=== PATIENT | female | born 1935 | race Caucasian/White ===

== ENCOUNTER 2018-06-07 06:38 | Inpatient (IN) | payer OTHER ==
[2018-06-07] VITALS (36 sets, daily range): BP systolic 88–160; BP diastolic 37–71
[~2018-06-07] VITALS: Ht 157.5 cm; Wt 71.5 kg
[2018-06-07] MEDS ORDERED: SUCCINYLCHOLINE CHLORIDE 20 MG/ML 10ML VIAL IV ONE ×2 (06:41→07:00)
[2018-06-07] MEDS ORDERED: ETOMIDATE (2MG/ML) 20ML VIAL IV ONE ×2 (06:41→07:00)
[2018-06-07] MEDS ORDERED: MIDAZOLAM DRIP 50 mg/50mL 50 ML IV ONE (06:57)
[2018-06-07] MEDS ORDERED: ALBUTEROL SULF 2.5 MG/0.5ML(0.5%) NEB SOLN HHN ONE (07:00)
[2018-06-07] MEDS ORDERED: IPRATROPIUM BROM 0.5 MG/2.5ML INH SOL HHN ONE (07:00)
[2018-06-07] MEDS ORDERED: methylPREDNISolone SOD SUCC 125 MG/2 ML VL IV ONE (07:00)
[2018-06-07 07:06] LABS: Basophils # (auto) 0.1 uL; Basophils % (auto) 0.6 % (0.0-2.0); Eosinophils # (auto) 0.1 uL; Eosinophils % (auto) 1.1 % (0.0-7.0); Hematocrit 36.5 % (36.0-46.0); Hemoglobin 11.3 g/dL (12.2-16.2); Lymphocytes # (auto) 4.8 uL; Lymphocytes % (auto) 47.8 % (10.0-50.0); Mean Corpuscular Hemoglobin 30.7 pg (28.0-32.0); Mean Corpuscular Volume 99.2 fL (80.0-100.0); Monocytes # (auto) 0.6 uL; Monocytes % (auto) 6.1 % (0.0-12.0); Neutrophils # (auto) 4.4 uL; Neutrophils % (auto) 44.4 % (37.0-80.0); Nucleated Red Blood Cells % 0.2 %; Platelet Count (auto) 213 10^3/uL (140-450); Red Blood Cells 3.67 10^6/uL (4.0-5.20); Red Cell Distribution Width 16.2 % (11.8-14.3)
[2018-06-07 07:24] LABS: Albumin 3.5 g/dL (3.4-5.0); Calcium 8.9 mg/dL (8.5-10.1); Magnesium 2.2 mg/dL (1.6-2.6); Potassium 4.4 mmol/L (3.5-5.1)
[2018-06-07 07:30] LABS: BUN/Creatinine Ratio 21.1; Bilirubin, Total 0.5 mg/dL (0.2-1.0)
[2018-06-07] MEDS: NOREPINEPHRINE 8 MG/250ML KIT 250 ML IV SCH ×3 (08:28→14:36)
[2018-06-07] MEDS ORDERED: PROPOFOL 100 ML IV ONE (08:28)
[2018-06-07 08:31] LABS: Urine Bacteria MOD /hpf (None Seen); Urine Blood 2+ /uL (Negative); Urine Mucus FEW (None Seen); Urine Specific Gravity 1.016 (1.001-1.035); Urine WBC 154 /hpf (0 - 5); Urine WBC Clumps PRESENT /hpf (None Seen)
[2018-06-07] MEDS: PROPOFOL 100 ML IV SCH (08:41)
[2018-06-07] MEDS: MIDAZOLAM DRIP 50 mg/50mL 50 ML IV SCH ×5 (08:41→21:28)
[2018-06-07 08:55] LABS: Lactic Acid w/Reflex 5.4 mmol/L (0.4-2.0)
[2018-06-07 09:09] LABS: INR 1.03 (0.9-1.15)
[2018-06-07] MEDS ORDERED: FUROSEMIDE 40 MG/4 ML VIAL IV ONE (11:00)
[2018-06-07] MEDS ORDERED: cefTRIAXone 1GM/50ML D5W 50 ML IV ONE (11:00)
[2018-06-07] MEDS ORDERED: LEVOFLOXACIN 750MG 150 ML IV SCH (11:15)
[2018-06-07] MEDS ORDERED: DEXTROSE (50%) 50ML SYRG IV PRN (11:15)
[2018-06-07] MEDS ORDERED: VANCOMYCIN PER PHARMACY 0 MG IV SCH (11:15)
[2018-06-07] MEDS ORDERED: HYDROcodone-ACET 5/325MG TAB PO PRN (11:15)
[2018-06-07] MEDS ORDERED: NITROGLYCERIN 0.4 MG SL TAB SL PRN (11:15)
[2018-06-07] MEDS ORDERED: SODIUM BICARBONATE 8.4 % INJ 50ML VIAL IV ONE (11:15)
[2018-06-07] MEDS ORDERED: ONDANSETRON HCL 4 MG/2 ML VIAL IV PRN (11:15)
[2018-06-07] MEDS ORDERED: MORPHINE SULFATE 4 MG/ML SYR/VIAL IV PRN (11:15)
[2018-06-07] MEDS ORDERED: MORPHINE SULF INJ 2 MG/ML SYRINGE 1ML IV PRN (11:15)
[2018-06-07] MEDS ORDERED: FUROSEMIDE 20 MG/2 ML VIAL IV ONE (11:15)
[2018-06-07] MEDS ORDERED: VANCOMYCIN 1GM/250ML 250 ML IV ONE (11:30)
[2018-06-07] MEDS: ACCU-CHEK COMFORT CURVE STRIP VI SCH ×2 (11:54→17:33)
[2018-06-07] MEDS: InsuLIN REG 1unit/0.01ml Soln (100units/ml) SC SCH ×2 (11:54→17:37)
[2018-06-07] MEDS: PANTOPRAZOLE 40 MG/10 ML VIAL IV SCH (11:57)
[2018-06-07] MEDS: IPRATROPIUM BROM 0.5 MG/2.5ML INH SOL NEB SCH ×2 (12:58→19:13)
[2018-06-07] MEDS: ALBUTEROL SULF 2.5 MG/0.5ML(0.5%) NEB SOLN NEB SCH ×2 (12:58→19:13)
--- NOTE | 2018-06-07 13:57 | NUR ---
PICC line placement Patient/Patient significant other educated on need for PICC line placement. All risks and benefits explained and all questions and concerns addressed prior to procedure. Noted past medical history and allergies with no contraindications. INR and Plt counts within acceptable range. 5 fr PICC line inserted via left basilic vein using [employer] US and Tip Location System. Sterile technique with maximum barrier precautions utilized. Blood return obtained from each of 3 lumens and each flushed easily with NS using proper technique. PICC secured with Stat-lock; biodisc and occlusive dressing applied. Stat portable chest x-ray obtained for PICC tip placement. *Baseline Arm Circumference 35cm. Internal length 37cm. External length 0cm. PICC lot # [id number] Note: Placed easily x1 attempt
[2018-06-07] MEDS ORDERED: LIDOCAINE 1% (LOCAL ANESTH.) PF 5ml SDV ID ONE (14:00)
--- NOTE | 2018-06-07 14:04 | NUR ---
OK to use PICC line Xray completed. OK to use PICC line.
--- NOTE | 2018-06-07 15:40 | NUR ---
Respiratory note: PT TRANSPORTED FROM ER TO ICU WITHOUT INCIDENT. PT WAS VENTILATED VIA AMBU-BAG AND ATTACHED TO NEON SIGN ERECTOR AND CONTINUOUS POX DURING THE TRANSPORT.
--- NOTE | 2018-06-07 15:40 | NUR ---
Admit to ICU from ER on vent CANDY MAHER,VADIM Badmitted to ICU via gurney on personnel monitor, intubated and being bagged by Respiratory Therapist. Patient transfered to bed, connected to mechanical ventilator by therapist, DIANNE at bedside. Patient connected to ICU monitoring, weighed by bedscale, oriented to Oren cee RN, unit, ventilator and sedation.
--- NOTE | 2018-06-07 16:27 | NUR ---
PEEP HAS BEEN INCREASED TO [address] TORREZ. NEW VENT SETTINGS: RR 16, VT 500, PEEP 7, 90% FIO2.
[2018-06-07] MEDS: FUROSEMIDE 20 MG/2 ML VIAL IV SCH (17:33)
--- NOTE | 2018-06-07 18:28 | NUR ---
PICC LINE INSERTED TODAY, DSG PLACED BY JONO RN Addendum: 06/07/18 at 1828 by Oren Marroquin RN Amended: Links added.
--- NOTE | 2018-06-07 18:30 | NUR ---
LEVOPHED OFF AT THIS TIME
[2018-06-07] MEDS ORDERED: SITA50TA PO (19:35)
[2018-06-07] MEDS ORDERED: GLIP-116 PO (19:35)
[2018-06-07] MEDS ORDERED: ENAL2.5T PO (19:35)
[2018-06-07] MEDS ORDERED: ALLO300T2 PO (19:35)
[2018-06-07] MEDS ORDERED: FURO20TA PO (19:35)
[2018-06-07] MEDS ORDERED: HYDR-4683 PO (19:35)
[2018-06-07] MEDS ORDERED: ATEN50TA PO (19:35)
[2018-06-07] MEDS ORDERED: PIO30T PO (19:35)
[2018-06-07] MEDS ORDERED: NITR0.4S29 SL (19:35)
[2018-06-07] MEDS ORDERED: METF-371 PO (19:35)
[2018-06-07] MEDS ORDERED: CLOP75TA28 PO (19:35)
[2018-06-07] MEDS ORDERED: FELO10TA PO (19:35)
[2018-06-07] MEDS ORDERED: ATOR40TA52 PO (19:35)
--- NOTE | 2018-06-07 19:41 | NUR ---
PT ADMITTED TODAY WITH SEPSIS, UTI, RESPIRATORY FAILURE, CHF. INTUBATED. ETT TO VENTILATOR. LEFT NARE NGT WITH DARK GREEN LIQUID IN TUBING. ABDOMEN SOFT. PAPER THIN SKIN. MULTIPLE DISPERSED HEMMORAGHIC AREAS ON ARMS. SKIN TEAR RIGHT FOREARM COVERED WITH KERLIX. 2 PERIPHERAL IVS. LEFT UPPER ARM PICC LINE. ON DIPRIVAN AND VERSED. LEVOPHED TURNED OFF ONE HOUR AGO. LABS: LACTIC ACID ELEVATED. BNP ELEVATED. D DIMER ELEVATED. BICARB IN ABG IS LOW. PENDING ECHO RESULTS. PATIENT IS WELL SEDATED. PROPOFOL TUBING CHANGED. TEMP 99.2. 3+ PITTING EDEMA IN BOTH LEGS. BP CUFF ON RIGHT LOWER LEG. SCD ON LEFT LOWER LEG.
[2018-06-07] MEDS: SODIUM CHLOR 0.9% PF (SALINE LOCK) 10ML VIAL/SYR IV SCH (22:00)
--- NOTE | 2018-06-07 22:00 | NUR ---
VSS. TEMP 97.9. NSR WITHOUT ECTOPY. NO SECRETIONS FROM ETT OR ORALLY. LUNGS CLEAR. REPOSITIONED. MOVES UPPER EXTREMITIES TO PAIN. DOES NOT MOVE LOWER EXTREMITIES TO PAIN. PICC LINE DRESSING SHOWS NO REDNESS OR SWELLING. RAC DRESSING HAS LEAKED BLOOD AT THE SITE. RIGHT FOREARM IV SHOWS NO REDNESS , DRAINAGE OR SWELLING.
[2018-06-08] VITALS (91 sets, daily range): BP systolic 114–169; BP diastolic 45–79
--- NOTE | 2018-06-08 | NUR ---
REPOSITIONED. NOTHING SUCTIONED FROM HER ETT OR ORAL CAVITY. LUNGS CLEAR. TEMP 97.6. SHEET AND BLANKET APPLIED. ABDOMEN SOFT. ALL PULSES ARE PALPABLE. SCDS ON. CONTINUE ON DIPRIVAN AND VERSED. MOVES ARMS AND LEGS NOW. CENTRAL LINE SHOWS NO REDNESS OR SWELLING.
[2018-06-08] MEDS: IPRATROPIUM BROM 0.5 MG/2.5ML INH SOL NEB SCH ×4 (00:06→18:42)
[2018-06-08] MEDS: ALBUTEROL SULF 2.5 MG/0.5ML(0.5%) NEB SOLN NEB SCH ×4 (00:06→18:42)
[2018-06-08] MEDS: InsuLIN REG 1unit/0.01ml Soln (100units/ml) SC SCH ×4 (00:19→17:52)
[2018-06-08] MEDS: ACCU-CHEK COMFORT CURVE STRIP VI SCH ×4 (00:19→17:52)
[2018-06-08] MEDS: PROPOFOL 100 ML IV SCH (02:00)
--- NOTE | 2018-06-08 02:00 | NUR ---
VSS. REPOSITIONED. ORAL CARE. LUNGS CLEAR. NO SECRETIONS SUCTIONED FROM HER LUNGS TONIGHT. NSR WITHOUT ECTOPY.
--- NOTE | 2018-06-08 03:00 | NUR ---
AM LABS DRAWN
[2018-06-08 03:43] LABS: Basophils # (auto) 0 uL; Basophils % (auto) 0.2 % (0.0-2.0); Eosinophils # (auto) 0 uL; Hematocrit 28.6 % (36.0-46.0); Hemoglobin 9.5 g/dL (12.2-16.2); Lymphocytes # (auto) 0.8 uL; Lymphocytes % (auto) 8.8 % (10.0-50.0); Mean Corpuscular Hgb Conc. 33.2 g/dL (32.0-36.0); Mean Corpuscular Volume 93.4 fL (80.0-100.0); Monocytes # (auto) 1.1 uL; Monocytes % (auto) 12.7 % (0.0-12.0); Neutrophils # (auto) 6.7 uL; Neutrophils % (auto) 78.3 % (37.0-80.0); Nucleated Red Blood Cells % 0.1 %; Platelet Count (auto) 135 10^3/uL (140-450); Red Blood Cells 3.07 10^6/uL (4.0-5.20); Red Cell Distribution Width 15.3 % (11.8-14.3); White Blood Cell 8.6 10^3/uL (4.4-10.8)
[2018-06-08 04:04] LABS: Calcium 8.6 mg/dL (8.5-10.1); Potassium 3.5 mmol/L (3.5-5.1)
[2018-06-08] MEDS: FUROSEMIDE 20 MG/2 ML VIAL IV SCH ×2 (05:40→17:52)
[2018-06-08] MEDS: MIDAZOLAM DRIP 50 mg/50mL 50 ML IV SCH ×3 (05:40→13:30)
--- NOTE | 2018-06-08 06:30 | NUR ---
Respiratory note: ORAL SKIN INTEGRITY CHECKED ON FIRST ROUNDS. PT HAS NO BREAKDOWN, WOUNDS, OR REDNESS AROUND MOUTH OR LIPS.
--- NOTE | 2018-06-08 07:41 | NUR ---
OPEN. REPORT RECEIVED FROM PHOTOENGRAVER APPRENTICE RN CL, ASSUMED CARE OF PT. VITAL SIGNS STABLE AT THIS TIME, SEE INTERVENTIONS FOR INITIAL ASSESSMENT. WILL CONTINUE TO MONITOR PT.
[2018-06-08] MEDS: SODIUM CHLOR 0.9% PF (SALINE LOCK) 10ML VIAL/SYR IV SCH ×2 (09:48→22:05)
[2018-06-08] MEDS: PANTOPRAZOLE 40 MG/10 ML VIAL IV SCH (09:48)
[2018-06-08] MEDS ORDERED: LEVOFLOXACIN 750MG 150 ML IV SCH (10:00)
--- NOTE | 2018-06-08 11:44 | NUR ---
Nutrition Assessment/consult Notes please see attached link for complete assessment Est. Needs ABW [id number] kcal (23-25 kcal/kgBW), 50-63 gms pro (0.8-1.0 gms/kgBW r/t elev RFT). Will continue to monitor pertinent labs and reassess nutrient need prn Rec: EN support with Glucerna @ 50 ml/hr per MD approval Addendum: 06/08/18 at [address] Amended: Links added.
--- NOTE | 2018-06-08 12:13 | NUR ---
DR CHAUDHRY AT BEDSIDE, NEW ORDERS IN PLACE AT THIS TIME.
--- NOTE | 2018-06-08 12:30 | NUR ---
WOUND CARE NOTE: Wound care consult received for skin tear. Patient is a 82 yo female admitted for sepsis. Patient with a history of hypertension and diabetes. No further history can be obtained per records due to intubation. Patient with no signs/symptoms of pain. Last Luan score is 16. Patient noted to have a skin tear to left lower arm measuring 3x4.5cm with skin flap in place, category 2. Wound cleansed with NS, patted dry, remaining skin flap positioned back over wound using a cotton tip applicator, therahoney gel applied to open areas and cover with optifoam dressing. RECOMMENDATIONS: Turn q2hrs; Dietary consult; Nursing to cleanse skin tear with NS, pat dry, apply therahoney gel to open area, cover with foam dressing, change every other day/PRN; wound care team to follow. Addendum: 06/08/18 at 1716 by TALITA UBRAN RN Amended: Links added.
--- NOTE | 2018-06-08 12:55 | NUR ---
CARDIAC CONSULT DR CARVAJAL UPDATED ON PT STATUS, DR MESA ROUND LATER TODAY.
--- NOTE | 2018-06-08 19:45 | NUR ---
INITIAL CONTACT ASSUMED CARE OF PATIENT PATIENT RECEIVED ON BED INTUBATED AND SEDATED ON VERSED AND PROPOFOL, SEE IV SPREAD SHEETS FOR TITRATIONS. PATIENT GRIMACES WHEN ORAL CARE IS GIVEN. PATIENT DOES NOT OPEN EYES AT THIS TIME. VITAL SIGNS WITHIN NORMAL LIMITS. NO S/S OF DISTRESS NOTED. PATIENT DOES NOT APPEAR TO BE IN PAIN AT THIS TIME. NOTED F/C IN PLACE AND DRAINING TO GRAVITY. ORAL CARE AND SUCTION PROVIDED. PATIENT READJUSTED IN BED. HOB AT 45 DEGREES FOR ASPIRATION PRECAUTIONS, VENTILATOR PLUGGED INTO RED OUTLET, AMBU BAG AT BEDSIDE. BED IN LOWEST LOCKED POSITION, SIDE RAILS UP X 2. PATIENT IN FULL VIEW OF NURSES STATION, SAFETY MAINTAINED, WILL CONTINUE TO MONITOR.
[2018-06-09] VITALS (94 sets, daily range): BP systolic 91–169; BP diastolic 33–98
[2018-06-09] MEDS: ALBUTEROL SULF 2.5 MG/0.5ML(0.5%) NEB SOLN NEB SCH ×4 (00:07→18:48)
[2018-06-09] MEDS: IPRATROPIUM BROM 0.5 MG/2.5ML INH SOL NEB SCH ×4 (00:07→18:48)
[2018-06-09] MEDS: VANCOMYCIN 1GM/250ML 250 ML IV SCH (00:16)
[2018-06-09] MEDS: PROPOFOL 100 ML IV SCH (00:16)
[2018-06-09] MEDS: ACCU-CHEK COMFORT CURVE STRIP VI SCH ×4 (00:34→17:57)
[2018-06-09] MEDS: InsuLIN REG 1unit/0.01ml Soln (100units/ml) SC SCH ×4 (00:35→17:57)
[2018-06-09] MEDS: MIDAZOLAM DRIP 50 mg/50mL 50 ML IV SCH ×2 (00:36→04:28)
[2018-06-09 05:09] LABS: Basophils # (auto) 0 uL; Basophils % (auto) 0.4 % (0.0-2.0); Eosinophils # (auto) 0 uL; Eosinophils % (auto) 0.3 % (0.0-7.0); Hematocrit 31.5 % (36.0-46.0); Lymphocytes # (auto) 0.9 uL; Mean Corpuscular Hemoglobin 32.5 pg (28.0-32.0); Mean Corpuscular Hgb Conc. 34.8 g/dL (32.0-36.0); Mean Corpuscular Volume 93.3 fL (80.0-100.0); Monocytes # (auto) 0.9 uL; Monocytes % (auto) 10.3 % (0.0-12.0); Neutrophils # (auto) 6.9 uL; Platelet Count (auto) 134 10^3/uL (140-450); Red Blood Cells 3.38 10^6/uL (4.0-5.20); Red Cell Distribution Width 15.3 % (11.8-14.3); White Blood Cell 8.7 10^3/uL (4.4-10.8)
[2018-06-09] MEDS: FUROSEMIDE 20 MG/2 ML VIAL IV SCH ×2 (05:15→18:02)
[2018-06-09 05:27] LABS: Albumin 2.8 g/dL (3.4-5.0); Calcium 8.6 mg/dL (8.5-10.1); Potassium 3.6 mmol/L (3.5-5.1)
[2018-06-09 05:32] LABS: BUN/Creatinine Ratio 22.4; Bilirubin, Total 0.4 mg/dL (0.2-1.0)
--- NOTE | 2018-06-09 07:30 | NUR ---
BRADYCARDIA BRADYCARDIA NOTED LOW AT 46 DURING CHANGE OF SHIFT. UPDATED BY NOC NURSE, NO REPORTS OF BRADYCARDIA BY NOC RN. IN ROOM AND PT TOLERATING VENTILATOR HAVING FREQUENT EPISODES OF BRADYCARDIA IN THE 40'S. SEDATION STOPPED, PT STIMULATED. INTERVENTIONS UNSUCCESSFUL, BP REMAINED STABLE. 0830 PATIENT NOTED HR 160'S. EKG TAKEN AND SHOWN TO DR. CARVAJAL IN TECHNICAL SALES DIRECTOR. NEW ORDERS IN PLACE FOR PO INTERVENTIONS FOR AFIB RVR. PO AMIO GIVEN VIA NG. HR REMAINED 160'S. DR. CARVAJAL REPAGED. MD AT BEDSIDE. NEW ORDER FOR IV METOPROLOL. IV MEDICATIONS GIVEN. 919 DR. CHAUDHRY UPDATED ON PATIENTS STATUS AND MORNING OCCURRENCE. NEW ORDERS IN PLACE. 929 AT BEDSIDE UPDATED ON PATIENTS STATUS. COPY ADVANCE DIRECTIVE SET IN CHART. PER PT TO REMAIN FULL CODE AND EVERYTHING TO BE DONE, ONLY IF THERE IS NO HOPE. PT TO REMAIN FULL CODE.
[2018-06-09] MEDS: NOREPINEPHRINE 8 MG/250ML KIT 250 ML IV SCH (08:15)
[2018-06-09] MEDS ORDERED: AMIODARONE HCL 200 MG TAB ONE (08:43)
[2018-06-09] MEDS ORDERED: METOPROLOL TARTRATE 1MG/1ML-5ML VIAL IV ONE (08:59)
[2018-06-09] MEDS ORDERED: METOPROLOL TARTRATE 50 MG TAB PO ONE (09:00)
[2018-06-09] MEDS: METOPROLOL TARTRATE 1MG/1ML-5ML VIAL IV SCH ×3 (09:00→15:27)
[2018-06-09] MEDS ORDERED: AMIODARONE HCL 200 MG TAB PO ONE (09:00)
--- NOTE | 2018-06-09 09:00 | NUR ---
ALL SEDATION OFF DUE TO BRADYCARDIA Addendum: 06/09/18 at 1327 by Aury Causey RN Amended: Links added.
[2018-06-09] MEDS ORDERED: ACETYLCYSTEINE ORAL for CIN 20%(200MG/ML) 4ML PO ONE (09:15)
[2018-06-09] MEDS ORDERED: POTASSIUM EFFERVESENT TAB 25 MEQ GT ONE (09:15)
[2018-06-09] MEDS: PANTOPRAZOLE 40 MG/10 ML VIAL IV SCH (09:39)
[2018-06-09] MEDS: SODIUM CHLOR 0.9% PF (SALINE LOCK) 10ML VIAL/SYR IV SCH ×2 (09:39→22:24)
[2018-06-09] MEDS ORDERED: DIGOXIN (250MCG/ML) 2 ML AMPULE IV ONE (11:15)
[2018-06-09] MEDS: MAGNESIUM SULFATE 1GM/100ML 100 ML IV SCH ×2 (13:44→15:05)
[2018-06-09] MEDS ORDERED: IOHEXOL 350 MG/ML 100ML IJ ONE (14:36)
--- NOTE | 2018-06-09 15:14 | NUR ---
LBD TEACHER PREOP AT BEDSIDE REPORT GIVEN AT BEDSIDE AND UPDATED ON PATIENTS STATUS. NURSES AWARE OF HR THROUGHOUT THE DAY, CURRENT HR 120'S. PT TAKEN TO LBD TEACHER VIA BED WITH R.T AT BEDSIDE.
--- NOTE | 2018-06-09 15:20 | NUR ---
PT TRANSPORTED TO COMPUTER SYSTEM VALIDATION SPECIALIST WITH NO INCIDENCE REPORTED. PT WAS MANUALLY VENTILATED WITH NO DISTRESS NOTED. SPO2 OF 96%-98%. PT CONNECTED TO COMPUTER SYSTEM VALIDATION SPECIALIST VENTILATOR AND PLACED ON AC, 16, 500, 7, 100%. NO DISTRESS NOTED. PT TRANSPORTED BACK TO ICU WITH NO INCIDENCE REPORTED AND PLACED PT BACK ON VENT SETTINGS MENTIONED ABOVE. WILL CONTINUE TO MONITOR PT.
[2018-06-09] MEDS ORDERED: IODIXANOL 320MG/ML 100ML BTL IV ONE (15:28)
[2018-06-09] MEDS ORDERED: LIDOCAINE 2%HCL (LOCAL ANESTH.) INJ 20ML MDV ONE (15:28)
[2018-06-09] MEDS ORDERED: ANGIOMAX 250 MG VIAL IV ONE (15:29)
[2018-06-09] MEDS ORDERED: SODIUM CHL 0.9% 0 ML ONE (15:29)
[2018-06-09] MEDS ORDERED: SODIUM CHLORIDE 0.9% 1,000 ML IV SCH ×2 (16:27→17:30)
--- NOTE | 2018-06-09 16:30 | NUR ---
S/P [facility] Report received from laboratory chief Rn . CANDY MAHER brought back to bed 112 following Left Cardiac catheterization, on cardiac technician and back on previous vent orders. Catheterization site assessed for any bleeding, redness or swelling. Pedal pulses on affected leg assessed for positive tissue perfusion. Patient remains sedated, tolerating ventilator well. Per seed laboratory technician rn, patient converted to sinus rhythm during the procedure. Strip in chart. Patients bp 140/59 hr sr 88, rr 20, pox noted as low as 85%. Patient given 100%. Back back up to 98% then back to 90%. Patien to remains flat until 1830.
--- NOTE | 2018-06-09 16:58 | NUR ---
Cooling Measures applied. Patient currently has temp of 99.2 , cooling measures in place.
[2018-06-09] MEDS ORDERED: DIGOXIN (250MCG/ML) 2 ML AMPULE IV SCH (17:30)
--- NOTE | 2018-06-09 17:45 | NUR ---
Family updated on pt status Family of CANDY MAHEREZEKIELVADIM Davy updated on patient's status and condition. All questions and concerns addressed. Jj, Son, verbalized understanding.
--- NOTE | 2018-06-09 18:00 | NUR ---
Family updated on pt status Family of CANDY MAHEREZEKIELVADIM Davy updated on patient's status and condition. All questions and concerns addressed. verbalized understanding.
--- NOTE | 2018-06-09 18:20 | NUR ---
Family updated on pt status Family of CANDY MAHEREZEKIELVADIM Davy updated on patient's status and condition. All questions and concerns addressed. Son Erasmo verbalized understanding.
--- NOTE | 2018-06-09 18:30 | NUR ---
DR. CHAUDHRY AWARE PATIENT HAS CONVERTED TO SINUS RHYTHM. ORDER TO DC LAST DOSE OF DIGOXIN IV.
--- NOTE | 2018-06-09 18:45 | NUR ---
RIGHT GROIN DRESSING HAS A SCANT AMOUNT OF SANGUINOUS DRAINAGE ON GAUZE. AREA CIRCLED. PT TO REMAIN SUPINE AT THIS, HOB ELEVATED TO 30 DEGREES. WILL CONTINUE TO MONITOR. VSS. TOLERATING VENTILATOR WELL.
--- NOTE | 2018-06-09 19:00 | NUR ---
OPENING NOTE ASSUMED CARE OF PATIENT AT THIS TIME. REPORT RECEIVED FROM DAY SHIFT RN. POC REVIEWED, HEAD TO TOE ASSESSMENT COMPLETE, SEE INTERVENTION SPREADSHEET FOR COMPLETE DETAILS. VSS AT THIS TIME. IV SITE BENIGN. FC DRAINING TO GRAVITY. PT VENTED AND SEDATED AT THIS TIME. BED LOCKED AND IN LOWEST POSITION, SAFETY PRECAUTIONS IN PLACE. WILL MONITOR PT CAREFULLY. Addendum: 06/10/18 at 0542 by JAMIL PINEDA RN NO BLEEDING VISUALIZED ON RIGHT GROIN, NO HEMATOMA PALPATED.
--- NOTE | 2018-06-09 21:43 | NUR ---
PT HAVING EPISODES OF BRADYCARDIA. HR DROPPING TO 40'S THEN RETURNING TO 70'S. FREQUENT PAC'S NOTED ON ICU MONITOR.
[2018-06-09] MEDS: METOPROLOL TARTRATE 50 MG TAB PO SCH (22:00)
--- NOTE | 2018-06-09 22:00 | NUR ---
metoprolol po held at this time. Hr dropping into the 40's
[2018-06-10] VITALS (106 sets, daily range): BP systolic 85–170; BP diastolic 34–99
[2018-06-10] MEDS: ALBUTEROL SULF 2.5 MG/0.5ML(0.5%) NEB SOLN NEB SCH ×4 (00:02→19:19)
[2018-06-10] MEDS: IPRATROPIUM BROM 0.5 MG/2.5ML INH SOL NEB SCH ×4 (00:02→19:19)
--- NOTE | 2018-06-10 00:17 | NUR ---
PT IN A-FIB RVR, HIGHEST RATE NOTED 130'S.
[2018-06-10] MEDS: METOPROLOL TARTRATE 1MG/1ML-5ML VIAL IV SCH (00:27)
--- NOTE | 2018-06-10 00:28 | NUR ---
PRN lopressor iv given for rate control.
[2018-06-10] MEDS: ACCU-CHEK COMFORT CURVE STRIP VI SCH ×4 (00:29→17:26)
[2018-06-10] MEDS: InsuLIN REG 1unit/0.01ml Soln (100units/ml) SC SCH ×4 (00:29→17:26)
--- NOTE | 2018-06-10 01:01 | NUR ---
EKG DONE, CONFIRMED PT IS IN AFIB WITH RVR. PT GOING IN AND OUT OF SR AND AFIB.
--- NOTE | 2018-06-10 02:38 | NUR ---
PT HR IN SUSTAINED AFIB WITH RVR. BP DECREASED, CURRENT BP 85/57. HOSPITALIST PAGED FOR ORDERS.
--- NOTE | 2018-06-10 02:54 | NUR ---
HOSPITALIST RETURNED PAGE, ORDER TO CONTINUE TO MONITOR PT.
--- NOTE | 2018-06-10 03:26 | NUR ---
CURRENT VS BP 115/51, HR 71 SR WITH PAC'S.
--- NOTE | 2018-06-10 03:29 | NUR ---
VERSED TURNED OFF AT THIS TIME. PT DOES NOT RESPOND EXCEPT TO WITHDRAW FROM STIMULATION SLIGHTLY.
--- NOTE | 2018-06-10 03:40 | NUR ---
PT HAVING BIGEMINAL PVC'S. AUSCULTATED HR AT THIS TIME 36 BPM.
--- NOTE | 2018-06-10 03:45 | NUR ---
PROPOFOL TURNED OFF AT THIS TIME
[2018-06-10 04:14] LABS: Basophils # (auto) 0 uL; Basophils % (auto) 0.2 % (0.0-2.0); Eosinophils # (auto) 0 uL; Hematocrit 31.9 % (36.0-46.0); Hemoglobin 10.5 g/dL (12.2-16.2); Lymphocytes # (auto) 0.8 uL; Lymphocytes % (auto) 8.9 % (10.0-50.0); Mean Corpuscular Hemoglobin 30.9 pg (28.0-32.0); Mean Corpuscular Hgb Conc. 33.1 g/dL (32.0-36.0); Mean Corpuscular Volume 93.3 fL (80.0-100.0); Monocytes # (auto) 1.1 uL; Monocytes % (auto) 12.9 % (0.0-12.0); Neutrophils # (auto) 6.6 uL; Platelet Count (auto) 151 10^3/uL (140-450); Red Blood Cells 3.42 10^6/uL (4.0-5.20); Red Cell Distribution Width 15.5 % (11.8-14.3); White Blood Cell 8.4 10^3/uL (4.4-10.8)
--- NOTE | 2018-06-10 04:15 | NUR ---
BED BATH AND SKIN CARE PROVIDED. PT TOLERATED WELL. ANGEL AND KOTA CHANGED AT THIS TIME. Addendum: 06/10/18 at 0525 by JAMIL PINEDA RN WOUND CARE PROVIDED ORDERED AT THIS TIME
--- NOTE | 2018-06-10 04:30 | NUR ---
TEMP 99.7 ORAL, COOLING MEASURES INITIATED
[2018-06-10 04:40] LABS: Potassium 3.2 mmol/L (3.5-5.1)
[2018-06-10 04:42] LABS: Calcium 8.4 mg/dL (8.5-10.1)
--- NOTE | 2018-06-10 04:45 | NUR ---
KA LEVEL THIS AM 3.2, PT HAVING PVC'S PAC'S. HOSPITALIST PAGED FOR ORDERS.
[2018-06-10 05:34] LABS: BUN/Creatinine Ratio 19.3
[2018-06-10] MEDS ORDERED: POTASSIUM EFFERVESENT TAB 25 MEQ PO ONE (06:00)
--- NOTE | 2018-06-10 06:19 | NUR ---
25 MEQS KA ORDERED PO. LASIX WITH HELD TILL KA LEVEL REDRAW
[2018-06-10] MEDS: PROPOFOL 100 ML IV SCH (07:27)
[2018-06-10] MEDS: NOREPINEPHRINE 8 MG/250ML KIT 250 ML IV SCH (07:27)
[2018-06-10] MEDS: MIDAZOLAM DRIP 50 mg/50mL 50 ML IV SCH (07:28)
--- NOTE | 2018-06-10 08:43 | NUR ---
Patient unable to sign IM at this time due to being on a ventilator.
[2018-06-10] MEDS ORDERED: HYDROcodone-ACET 5/325MG TAB PO PRN (08:45)
[2018-06-10] MEDS ORDERED: MORPHINE SULFATE 4 MG/ML SYR/VIAL IV PRN (08:45)
[2018-06-10] MEDS ORDERED: Glucerna 1.2 Cal 1Liter BOTTLE GT SCH (09:15)
[2018-06-10] MEDS ORDERED: LEVOFLOXACIN 750MG 150 ML IV SCH (10:00)
--- NOTE | 2018-06-10 10:00 | NUR ---
DR. CHAUDHRY AT BEDSIDE MD UPDATED ON PATIENTS STATUS. NEW ORDERS IN PLACE. MD SPOKE TO AT BEDSIDE. QUESTIONS AND CONCERNS ADDRESSED. MD AWARE OF COPY OF ADVANCE DIRECTIVE IN CHART.
--- NOTE | 2018-06-10 10:18 | NUR ---
CHANGED BY KENIA BURNS ON 06/10. DRESSING NOT DUE. CDI. Addendum: 06/10/18 at 1019 by Aury Causey RN Amended: Links added.
[2018-06-10] MEDS: PANTOPRAZOLE 40 MG/10 ML VIAL IV SCH (10:26)
[2018-06-10] MEDS: FUROSEMIDE 20 MG/2 ML VIAL IV SCH ×2 (10:26→17:26)
[2018-06-10] MEDS: SODIUM CHLOR 0.9% PF (SALINE LOCK) 10ML VIAL/SYR IV SCH ×2 (10:27→22:14)
[2018-06-10] MEDS: DOBUTamine 1000MCG/ML 250 ML IV SCH ×2 (10:27→22:13)
[2018-06-10] MEDS: LEVOFLOXACIN 750MG 150 ML IV SCH (10:27)
[2018-06-10] MEDS: POTASSIUM EFFERVESENT TAB 25 MEQ GT SCH ×2 (10:28→22:05)
[2018-06-10] MEDS: METOPROLOL TARTRATE 50 MG TAB PO SCH ×2 (10:28→22:05)
[2018-06-10] MEDS: ACETYLCYSTEINE ORAL for CIN 20%(200MG/ML) 4ML PO SCH ×2 (10:30→22:06)
--- NOTE | 2018-06-10 10:30 | NUR ---
Family updated on pt status Family of VADIM HENAO updated on patient's status and condition by Dr. Lock. All questions and concerns addressed. Son, Erasmo verbalized understanding.
--- NOTE | 2018-06-10 11:47 | NUR ---
Nutrition Follow-up Notes Wt.: 72.8 kg Pt continues to be intubated sedated with no family by bedside. pt is currently off propofol. RN by bedside and informed of RD rec per MD approval. pt is currently NPO with no diet order when rounded Est. Needs ABW [id number] kcal (23-25 kcal/kgBW), 50-63 gms pro (0.8-1.0 gms/kgBW r/t elev RFT). Will continue to monitor pertinent labs and reassess nutrient need prn Labs: BUN 23 H, CREAT 1.19 H, CA 8.4 L, GLU 165 H Skin: Luan scale 12, high risk, skin tear on arm per RN doc GI: Pt has no BM reported per infrastructure architect. PES: Altered nutrition related lab values r/t current/chronic medical condition aeb elev RFT Decreased nutrient needs r/t adiposity aeb pt`s high BMI of 30.8 kgm2 Impaired swallowing r/t current medical condition aeb pt`s intubated sedated with order of NPO Will continue to monitor NPO status skin status, pertinent labs and weight trend. F/u in 2-3 days. Rec.: 1.) consider alternate nutrition support with Glucerna @ 50 ml/hr per MD approval. 2) advance diet as medically feasible. 3) refer to CDE on DC. 4) continue current plan of care
--- NOTE | 2018-06-10 12:00 | NUR ---
Neuro Patient remains off sedation. Positive gag, facial grimacing to light pain/activity. Pt noted to move upper extremities. Mittens applied for safety. Pt tolerating ventilator well, non labored breathing noted.
--- NOTE | 2018-06-10 12:23 | NUR ---
Cooling Measures applied. Patient currently has temp of 99.8 , cooling measures in place.
[2018-06-10] MEDS: VANCOMYCIN 1GM/250ML 250 ML IV SCH (12:45)
--- NOTE | 2018-06-10 13:26 | NUR ---
MAIL SERVICE COORDINATOR AT BEDSIDE MD UPDATED ON PATIENT STATUS. MD AWARE PT REMAINS OFF SEDATION. TOLERATING VENT WELL. SEE MD ORDERS.
--- NOTE | 2018-06-10 16:00 | NUR ---
Cooling Measures applied. Patient currently has temp of 100.8 , cooling measures in place.
--- NOTE | 2018-06-10 16:00 | NUR ---
TUBE FEEDINGS STARTED AFTER PLACEMENT VERIFICATION. ASPIRATION PRECAUTIONS IN PLACE.
--- NOTE | 2018-06-10 17:37 | NUR ---
PICC Line Dressing Changes PICC line dressing change done with a sterile technique. Cleansed with chloraprep. Stat lock, and bio-patch as available. Occlusive dressing applied. See e-MAR for medications given during this visit.
[2018-06-10] MEDS: ACETAMINOPHEN 500 MG TAB PO PRN (22:06)
[2018-06-10] MEDS: MORPHINE SULF INJ 2 MG/ML SYRINGE 1ML IV PRN (22:35)
[2018-06-11] VITALS (74 sets, daily range): BP systolic 85–155; BP diastolic 41–91
[2018-06-11] MEDS: ALBUTEROL SULF 2.5 MG/0.5ML(0.5%) NEB SOLN NEB SCH ×4 (00:12→18:50)
[2018-06-11] MEDS: IPRATROPIUM BROM 0.5 MG/2.5ML INH SOL NEB SCH ×4 (00:12→18:50)
[2018-06-11 04:26] LABS: Basophils # (auto) 0 uL; Basophils % (auto) 0.2 % (0.0-2.0); Eosinophils # (auto) 0 uL; Eosinophils % (auto) 0.1 % (0.0-7.0); Hematocrit 30.6 % (36.0-46.0); Hemoglobin 10.1 g/dL (12.2-16.2); Lymphocytes # (auto) 0.8 uL; Lymphocytes % (auto) 9.5 % (10.0-50.0); Mean Corpuscular Hemoglobin 30.9 pg (28.0-32.0); Mean Corpuscular Hgb Conc. 33.1 g/dL (32.0-36.0); Mean Corpuscular Volume 93.5 fL (80.0-100.0); Monocytes # (auto) 1.1 uL; Monocytes % (auto) 12.9 % (0.0-12.0); Neutrophils # (auto) 6.5 uL; Neutrophils % (auto) 77.3 % (37.0-80.0); Platelet Count (auto) 136 10^3/uL (140-450); Red Blood Cells 3.28 10^6/uL (4.0-5.20); Red Cell Distribution Width 15.5 % (11.8-14.3); White Blood Cell 8.4 10^3/uL (4.4-10.8)
[2018-06-11 04:30] LABS: BUN/Creatinine Ratio 21.1; Calcium 8.2 mg/dL (8.5-10.1); Potassium 3.8 mmol/L (3.5-5.1)
[2018-06-11] MEDS: METOPROLOL TARTRATE 1MG/1ML-5ML VIAL IV SCH (04:56)
[2018-06-11] MEDS: MORPHINE SULF INJ 2 MG/ML SYRINGE 1ML IV PRN (04:58)
[2018-06-11] MEDS: FUROSEMIDE 20 MG/2 ML VIAL IV SCH ×2 (05:44→18:04)
[2018-06-11] MEDS: ACCU-CHEK COMFORT CURVE STRIP VI SCH ×4 (06:00→18:03)
[2018-06-11] MEDS: METOPROLOL TARTRATE 50 MG TAB PO SCH ×2 (06:00→21:18)
[2018-06-11] MEDS: InsuLIN REG 1unit/0.01ml Soln (100units/ml) SC SCH ×4 (06:00→18:03)
--- NOTE | 2018-06-11 08:10 | NUR ---
ASSESSMENT PT LAYING IN BED ,ON THE VENTILATOR AND WITH NO SEDATION SINCE 0400 ON 06/10. PT OPENS EYES OCCASIONALLY BUT NO TRACKING NOTED AND DOES NOT FOLLOW ANY COMMANDS. 8 FR ETT/24 AT THE LIP, IMV RATE OF 12, TV 500, 40% FIO2, PEEP OF 5, PRESSURE SUPPORT OF 10 . LUNGS CLEAR THROUGHOUT. O2 SAT OF 92% TELE ATRIAL FIB , RATE OF 152. WILL NOTIFY DR CARVAJAL FOR POSSIBLE ORDERS. SCDS TO LEFT LEG AND BP CUFF TO RIGHT CALF. ABD SOFT WITH + BOWEL SOUNDS. LEFT NARES NGT, + PLACEMENT AND WITH GLUCERNA 1.2 AT 30 ML/HR, 5 ML RESIDUAL. NO BM. VILLEGAS WITH YELLOW URINE WITH SEDIMENT. TURNED FOR COMFORT. SKIN INTACT TO SACRUM, OPTIFOAM DRESSING IN PLACE. ECCHYMOSIS NOTED TO BOTH ARMS. SKIN TEAR TO THE RIGHT FOREARM, OPTIFOAM IN PLACE. TURNED TO THE LEFT SIDE FOR COMFORT. CONTINUE TO MONITOR.
--- NOTE | 2018-06-11 08:10 | NUR ---
PT TEACHING PT UNABLE TO BENEFIT FROM PT TEACHING AT THIS TIME SHE IS NOT AWAKE ENOUGH. Addendum: 06/11/18 at 1730 by Bia Marc RN Amended: Links added.
[2018-06-11] MEDS: PROPOFOL 100 ML IV SCH (08:21)
[2018-06-11] MEDS: MIDAZOLAM DRIP 50 mg/50mL 50 ML IV SCH (08:30)
[2018-06-11] MEDS ORDERED: METOPROLOL SUCCINATE XL 50 MG TAB PO ONE (09:30)
[2018-06-11] MEDS ORDERED: AMIODARONE HCL 200 MG TAB PO SCH (10:00)
[2018-06-11] MEDS: PANTOPRAZOLE 40 MG/10 ML VIAL IV SCH (10:04)
[2018-06-11] MEDS: DOBUTamine 1000MCG/ML 250 ML IV SCH (10:06)
[2018-06-11] MEDS: POTASSIUM EFFERVESENT TAB 25 MEQ GT SCH ×2 (10:06→21:16)
[2018-06-11] MEDS: SODIUM CHLOR 0.9% PF (SALINE LOCK) 10ML VIAL/SYR IV SCH ×2 (10:06→22:00)
[2018-06-11] MEDS ORDERED: DIGOXIN (250MCG/ML) 2 ML AMPULE ONE (10:43)
[2018-06-11] MEDS ORDERED: DIGOXIN (250MCG/ML) 2 ML AMPULE IV ONE ×2 (10:45→11:15)
[2018-06-11] MEDS ORDERED: AMIODARONE HCL 900 MG in DEXTROSE 500 ML IV SCH (10:45)
[2018-06-11] MEDS: VANCOMYCIN 1GM/250ML 250 ML IV SCH (15:14)
[2018-06-11] MEDS: AMIODARONE HCL 900 MG in DEXTROSE 500 ML IV SCH (17:20)
--- NOTE | 2018-06-11 18:00 | NUR ---
PT FEELS WARM WHEN TURNING HER. ORAL TEMP OF 100.6. APPLIED ICE PACKS UNDER ARMS AND ADMINISTERED TYLENOL 500MG ORDERED.
[2018-06-11] MEDS: ACETAMINOPHEN 500 MG TAB PO PRN (18:31)
[2018-06-11] MEDS: ACETYLCYSTEINE ORAL for CIN 20%(200MG/ML) 4ML PO SCH ×2 (18:49→21:17)
--- NOTE | 2018-06-11 19:18 | NUR ---
REPORT REPORT GIVEN TO ISIAH JENNINGS RN. .
[2018-06-11] MEDS: APIXABAN 5 MG TAB PO SCH (21:18)
[2018-06-12] VITALS (33 sets, daily range): BP systolic 109–160; BP diastolic 41–90
[2018-06-12] MEDS: ALBUTEROL SULF 2.5 MG/0.5ML(0.5%) NEB SOLN NEB SCH ×6 (00:34→22:57)
[2018-06-12] MEDS: IPRATROPIUM BROM 0.5 MG/2.5ML INH SOL NEB SCH ×6 (00:34→22:57)
[2018-06-12 04:32] LABS: Basophils # (auto) 0 uL; Basophils % (auto) 0.1 % (0.0-2.0); Eosinophils # (auto) 0.1 uL; Eosinophils % (auto) 1.3 % (0.0-7.0); Hematocrit 28.9 % (36.0-46.0); Hemoglobin 9.4 g/dL (12.2-16.2); Lymphocytes # (auto) 0.5 uL; Lymphocytes % (auto) 7.1 % (10.0-50.0); Mean Corpuscular Hemoglobin 30.9 pg (28.0-32.0); Mean Corpuscular Hgb Conc. 32.6 g/dL (32.0-36.0); Mean Corpuscular Volume 94.7 fL (80.0-100.0); Monocytes # (auto) 0.9 uL; Monocytes % (auto) 11.8 % (0.0-12.0); Neutrophils # (auto) 5.8 uL; Neutrophils % (auto) 79.7 % (37.0-80.0); Nucleated Red Blood Cells % 0.1 %; Platelet Count (auto) 121 10^3/uL (140-450); Red Blood Cells 3.05 10^6/uL (4.0-5.20); Red Cell Distribution Width 15.2 % (11.8-14.3); White Blood Cell 7.3 10^3/uL (4.4-10.8)
[2018-06-12 04:38] LABS: BUN/Creatinine Ratio 23.8; Calcium 8.4 mg/dL (8.5-10.1); Potassium 4.1 mmol/L (3.5-5.1)
[2018-06-12] MEDS: FUROSEMIDE 20 MG/2 ML VIAL IV SCH ×2 (05:14→17:53)
[2018-06-12] MEDS: InsuLIN REG 1unit/0.01ml Soln (100units/ml) SC SCH ×5 (05:16→23:45)
[2018-06-12] MEDS: ACCU-CHEK COMFORT CURVE STRIP VI SCH ×5 (05:17→23:46)
--- NOTE | 2018-06-12 07:04 | NUR ---
Respiratory note: RECEIVED PATIENT ON V14 ESPRIT VENT ORALLY INTUBATED WITH AN 8.0 ETT SECURED VIA KJ AT THE 24CM MARKING AT THE LIP, AND MECHANICALLY VENTILATED WITH THE ABOVE SETTINGS. SPO2 96%, LUNG SOUNDS ARE AERATED BUT COARSE T/O, SCANT AMOUNT OF THIN CLEAR SECRETIONS WHEN SUCTIONED. SKIN IS WARM/DRY TO THE TOUCH AND IS INTACT NEAR KJ SITE. NO SKIN INTEGRITY ISSUES NOTED ON CHEEKS, FACE, OR LIP FROM KJ OR ETT. THERE IS A NGT IN THE LEFT NARE AND IT IS SECURED TO THE ETT, PICC LINE PLACED IN RIGHT UPPER ARM, NON PITTING EDEMA NOTED IN BILATERAL UPPER EXTREMITIES, PITTING EDEMA NOTED IN LOWER EXTREMITIES. PATIENT IS AWAKE AND RESPONSIVE TO TACTILE STIMULI AND HAS A SLIGHT RESPONSE TO VERBAL STIMULI, BUT DOES NOT FOLLOW ANY COMMANDS. NO NEW AM CXR TO ASSESS AT THIS TIME. PATIENT IS RESTING COMFORTABLY AND TOLERATING VENT WELL, NO CHANGES MADE. POC FOR DAY IS TO CPAP AND EXTUBATE. WILL COORDINATE WITH AM RN FOR ALL WEANING. VENT PLUGGED INTO RED OUTLET AND ALL ALARMS ARE SET AND AUDIBLE. WILL CONTINUE TO ASSESS PATIENT WELL VENTILATOR FUNCTION. MED-NEB RUN INLINE.
[2018-06-12] MEDS: PROPOFOL 100 ML IV SCH (08:21)
[2018-06-12] MEDS: MIDAZOLAM DRIP 50 mg/50mL 50 ML IV SCH (08:30)
--- NOTE | 2018-06-12 09:30 | NUR ---
MD/PHONE CALLED AND SPOKE WITH DR MCKEE TO NOTIFY OF AM ABG, AND THAT PT IS AWAKE AND FOLLOWING SOME SIMPLE COMMANDS. ORDERS RECEIVED FOR CPAP TRIAL. NOTIFIED RT. YURI PT'S AT THE BEDSIDE AND MADE AWARE.
--- NOTE | 2018-06-12 09:58 | NUR ---
Respiratory note: PATIENT PLACED ON CPAP AT THIS TIME PER DR. MCKEE'S TELEPHONE ORDER. RN KINJAL AWARE OF VENT MODE CHANGE. SPO2: 96% RR:15 VT: 503 HR: 72 BP: 136/50
[2018-06-12] MEDS ORDERED: FUROSEMIDE 20 MG/2 ML VIAL IV ONE (10:00)
[2018-06-12] MEDS: POTASSIUM EFFERVESENT TAB 25 MEQ GT SCH ×2 (10:00→21:57)
--- NOTE | 2018-06-12 10:27 | NUR ---
Respiratory note: PATIENT EXTUBATED AT THIS TIME POST POSITIVE CPAP TRIAL AND DR. MCKEE'S TELEPHONE ORDER. PATIENT WAS PLACED ON 40% COOL AEROSOL MASK. NO STRIDOR HEARD. PATIENT TOLERATED PROCEDURE WELL, EXTUBATION COMPLETED WITHOUT INCIDENT. KO LAYTON AT BEDSIDE AND AWARE OF THERAPY CHANGE.
[2018-06-12] MEDS: SODIUM CHLOR 0.9% PF (SALINE LOCK) 10ML VIAL/SYR IV SCH ×2 (11:05→21:57)
[2018-06-12] MEDS: LEVOFLOXACIN 750MG 150 ML IV SCH (11:05)
[2018-06-12] MEDS: APIXABAN 5 MG TAB PO SCH ×2 (11:05→21:57)
[2018-06-12] MEDS: PANTOPRAZOLE 40 MG/10 ML VIAL IV SCH (11:05)
[2018-06-12] MEDS: METOPROLOL TARTRATE 50 MG TAB PO SCH ×2 (11:30→21:58)
--- NOTE | 2018-06-12 12:19 | NUR ---
Respiratory note: 1200 MED-NEB HELD FOR POST EXTUBATION COOL AEROSOL TX.
--- NOTE | 2018-06-12 12:30 | NUR ---
Nutrition Follow-up Notes Wt.: 72.0 kg Pt continues to be intubated sedated with no family by bedside. pt is currently off propofol. pt is currently NPO on EN support with Glucerna @ 30 ml/hr providing 864 kcals and 43 gm proteins. pt with inadequate EN support as it meets 54-59% kcals and 68-86% proteins. pt tolerating TF well per nursing Est. Needs ABW [id number] kcal (23-25 kcal/kgBW), 50-63 gms pro (0.8-1.0 gms/kgBW r/t elev RFT). Will continue to monitor pertinent labs and reassess nutrient need prn Labs: BUN 25 H, CREAT 1.05 H, GLU 212 H, CA 8.4 L. Skin: Luan scale 15, mod risk, skin tear on arm per RN doc GI: Pt has no BM reported per tufter hand. PES: Altered nutrition related lab values r/t current/chronic medical condition aeb elev RFT Decreased nutrient needs r/t adiposity aeb pt`s high BMI of 30.8 kgm2 Impaired swallowing r/t current medical condition aeb pt`s intubated sedated with order of NPO Will continue to monitor NPO status, EN tolerance, skin status, pertinent labs and weight trend. F/u in 2-3 days. Rec.: 1.) Advance rate of Glucerna @ 50 ml/hr per MD approval. 2) advance diet as medically feasible. 3) refer to CDE on DC. 4) continue current plan of care
--- NOTE | 2018-06-12 13:05 | NUR ---
Pt with RR 30 and "she states she is having trouble breathing". Lungs with inspiratory wheezing and expiratory rhonchi noted. STAT paged Dr Lock and spoke with respiratory therapist, Tiago. Orders received for BIPAP 12/5 and O2 to maintain O2 sats 90% or greater.
--- NOTE | 2018-06-12 13:10 | NUR ---
Tiago RT, at the bedside and pt started on MN treatment.
[2018-06-12] MEDS ORDERED: IPRATROPIUM BROM 0.5 MG/2.5ML INH SOL NEB PRN (13:15)
[2018-06-12] MEDS ORDERED: ALBUTEROL SULF 2.5 MG/0.5ML(0.5%) NEB SOLN NEB PRN (13:15)
--- NOTE | 2018-06-12 13:19 | NUR ---
Respiratory note: CALLED TO PATIENTS ROOM FOR RESPIRATORY DISTRESS. UPON ARRIVAL SPO2 WAS 86%, LUNG SOUNDS WERE COARSE WHEEZES T/O, AND STRIDOR WAS NOW HEARD. RACEMIC EPI MED-NEB ADMINISTERED AND BIPAP 12/5 60% PLACED ON.
[2018-06-12] MEDS ORDERED: EPINEPHrine HCL 0.5 ML NEB NEB ONE (13:30)
--- NOTE | 2018-06-12 13:32 | NUR ---
Respiratory note: POST RACEMIC EPI TX, NO MORE STRIDOR HEARD. PATIENT TOLERATING BIPAP WELL AND SHOWING NO SIGNS OF RESPIRATORY DISTRESS. RESPIRATION ARE EVEN AND UNLABORED WITH BIPAP.
[2018-06-12] MEDS: AMIODARONE HCL 900 MG in DEXTROSE 500 ML IV SCH (13:37)
[2018-06-12] MEDS: VANCOMYCIN 1GM/250ML 250 ML IV SCH (14:19)
[2018-06-12] MEDS ORDERED: ALBUTEROL SULF 2.5 MG/0.5ML(0.5%) NEB SOLN NEB SCH (16:00)
[2018-06-12] MEDS ORDERED: IPRATROPIUM BROM 0.5 MG/2.5ML INH SOL NEB SCH (16:00)
--- NOTE | 2018-06-12 16:23 | NUR ---
Respiratory note: PATIENT SHOWING NO SIGNS/SYMPTOMS OF RESPIRATORY DISTRESS AND WAS REMOVED FROM BIPAP AND PLACED ON 4LPM NASAL CANNULA. SPO2 MAINTAINS AT 97%. RN KINJAL MADE AWARE OF OXYGEN INTERFACE CHANGE.
--- NOTE | 2018-06-12 17:03 | NUR ---
FAMILY PT'S AT THE BEDSIDE AND UPDATED ON THE PT'S CONDITION.
--- NOTE | 2018-06-12 18:14 | NUR ---
SEEN AND EXAMINED BY DR MCKEE. ORDERED FOR SWALLOW EVALUATION AND STOP NGT FEEDINGS.
--- NOTE | 2018-06-12 19:30 | NUR ---
REPORT REPORT GIVEN TO THE NIGHT RNISIAH.
--- NOTE | 2018-06-12 19:50 | NUR ---
DRESSING CHANGE SKIN TEAR TO RIGHT FOREARM, CLEANED WITH NS, PATTED DRY WITH STERILE GAUZE, APPLIED THERAHONEY GEL AND COVERED WITH OPTIFOAM DRESSING, TOLERATED WELL BY PT.
[2018-06-12] MEDS: MORPHINE SULF INJ 2 MG/ML SYRINGE 1ML IV PRN (21:16)
--- NOTE | 2018-06-12 21:16 | NUR ---
Pt fighting the bipap machine, pulled out ngt, wants to go home, desats. ms 1 mgiv, bipap back in place, doing better.
[2018-06-13] VITALS (47 sets, daily range): BP systolic 123–172; BP diastolic 44–102
[2018-06-13] MEDS: ALBUTEROL SULF 2.5 MG/0.5ML(0.5%) NEB SOLN NEB SCH ×4 (02:35→14:10)
[2018-06-13] MEDS: IPRATROPIUM BROM 0.5 MG/2.5ML INH SOL NEB SCH ×6 (02:35→22:34)
[2018-06-13 04:00] LABS: Basophils # (auto) 0 uL; Basophils % (auto) 0.3 % (0.0-2.0); Eosinophils # (auto) 0.1 uL; Eosinophils % (auto) 1.2 % (0.0-7.0); Hematocrit 29.6 % (36.0-46.0); Hemoglobin 9.8 g/dL (12.2-16.2); Lymphocytes # (auto) 0.8 uL; Lymphocytes % (auto) 10.1 % (10.0-50.0); Mean Corpuscular Hemoglobin 30.7 pg (28.0-32.0); Mean Corpuscular Volume 93.1 fL (80.0-100.0); Monocytes # (auto) 1.1 uL; Neutrophils # (auto) 5.6 uL; Neutrophils % (auto) 73.4 % (37.0-80.0); Platelet Count (auto) 139 10^3/uL (140-450); Red Blood Cells 3.18 10^6/uL (4.0-5.20); Red Cell Distribution Width 15.2 % (11.8-14.3); White Blood Cell 7.7 10^3/uL (4.4-10.8)
[2018-06-13 04:22] LABS: Potassium 3.7 mmol/L (3.5-5.1)
[2018-06-13] MEDS: FUROSEMIDE 20 MG/2 ML VIAL IV SCH ×2 (06:00→18:29)
[2018-06-13] MEDS: ACCU-CHEK COMFORT CURVE STRIP VI SCH ×4 (06:00→23:20)
--- NOTE | 2018-06-13 07:30 | NUR ---
REPORT: REPORT RECEIVED FROM COMMERCIAL LINES MANAGER RN TO RESUME CARE OF PT.
--- NOTE | 2018-06-13 08:00 | NUR ---
OPEN: ASSESSMENT COMPLETE. SEE NURSING FLOW SHEET FOR UPDATED DETAILS. PT IS ALERT AND ORIENTED X2, AWARE OF WHO SHE IS AND WHO HER FAMILY IS, HOWEVER, PATIENT IS RESTLESS IN BED ON OCCASION, NOT VERBALIZING THAT SHE IS IN THE HOSPITAL AT TIME, CONFUSED ON SITUATION AND TIME. ON 3L NC. VILLEGAS CATHETER DRAINING URINE TO GRAVITY. SCD'S ON BILATERAL LOWER EXTREMITIES. 3 LUMEN PICC LINE TO LEFT UPPER ARM RUNNING AMIODARONE GTT AT 0.5MG/HR AND .9NS AT TKO RATE OF 10ML/HR. ALL MONITORS HOOKED UP TO PT FOR CONTINUOUS MONITORING. SHARED POC WITH PT BUT UNABLE TO VERBALIZE UNDERSTANDING AT TIME. CONTINUE CARE FOR SHIFT.
[2018-06-13] MEDS: MIDAZOLAM DRIP 50 mg/50mL 50 ML IV SCH (08:30)
--- NOTE | 2018-06-13 08:30 | NUR ---
RESP CHANGE: PT STARTING TO HAVE SLIGHT RESPIRATORY DISTRESS AT TIME. TACHYPNEIC, O2 SATS DECREASING TO 87% AND PT MORE RESTLESS IN BED. PAGED RT.
[2018-06-13] MEDS ORDERED: FUROSEMIDE 40 MG/4 ML VIAL ONE (08:49)
[2018-06-13] MEDS ORDERED: FUROSEMIDE 40 MG/4 ML VIAL IV ONE (08:50)
--- NOTE | 2018-06-13 08:50 | NUR ---
BIPAP: BIPAP PLACED ONTO PATIENT. PATIENT IS PROGRESSIVELY MORE SHORT OF BREATH THAN PRIOR, O2 SATS DECREASING TO 70-80%, PATIENT HEART RATE INCREASED TO 130-140'S ATRIAL FIBRILLATION AND PATIENT BECOMING MORE RESTLESS IN BED.
--- NOTE | 2018-06-13 08:55 | NUR ---
MD VISIT: DR. TORREZ IN AT BEDSIDE. UPDATED ON PT STATUS AND NEW ORDERS RECEIVED. AWARE OF BIPAP BACK ON, RESPIRATORY DIFFICULTY AND INCREASED WORK OF BREATHING. NEW ORDERS RECEIVED FOR SOLUMEDROL, LASIX AND MED NEB CHANGES.
[2018-06-13] MEDS ORDERED: LEVALBUTEROL HCL 1.25 MG/3 ML NEB NEB SCH (09:15)
--- NOTE | 2018-06-13 09:20 | NUR ---
FAMILY: FAMILY IN AT BEDSIDE.
--- NOTE | 2018-06-13 09:50 | NUR ---
FAMILY: FAMILY CALLED. UPDATED ON PT STATUS AFTER VERIFICATION OF PASSWORD.
[2018-06-13] MEDS: LEVALBUTEROL HCL 1.25 MG/3 ML NEB NEB SCH ×4 (10:18→22:34)
[2018-06-13] MEDS: PANTOPRAZOLE 40 MG/10 ML VIAL IV SCH (10:36)
[2018-06-13] MEDS: methylPREDNISolone SOD SUCC 125 MG/2 ML VL IV SCH ×2 (10:36→23:10)
[2018-06-13] MEDS: METOPROLOL TARTRATE 50 MG TAB PO SCH ×2 (10:36→23:09)
[2018-06-13] MEDS: SODIUM CHLOR 0.9% PF (SALINE LOCK) 10ML VIAL/SYR IV SCH ×2 (10:36→23:10)
[2018-06-13] MEDS: APIXABAN 5 MG TAB PO SCH ×2 (10:36→23:09)
[2018-06-13] MEDS: PROPOFOL 100 ML IV SCH (10:38)
[2018-06-13 11:01] LABS: Albumin 2.2 g/dL (3.4-5.0); Calcium 8.8 mg/dL (8.5-10.1); Potassium 3.9 mmol/L (3.5-5.1)
[2018-06-13 11:04] LABS: Bilirubin, Total 0.6 mg/dL (0.2-1.0)
[2018-06-13] MEDS ORDERED: EPINEPHrine HCL 0.5 ML NEB NEB PRN (11:15)
--- NOTE | 2018-06-13 11:30 | NUR ---
MD VISIT: DR. CHAUDHRY IN AT BEDSIDE. UPDATED ON PT STATUS AND AWARE OF CURRENT FINDINGS. NEW ORDERS RECEIVED. PLAN TO CARRY OUT.
--- NOTE | 2018-06-13 12:00 | NUR ---
UPDATE: MITTENS REMOVED FROM BILATERAL HANDS, PT ABLE TO FOLLOW SIMPLE COMMANDS AND NOT APPEARING TO BE IN DISTRESS AT TIME. ON BIPAP STILL BUT NO RESP. DISTRESS NOTED. CONTINUE CARE FOR SHIFT.
[2018-06-13] MEDS ORDERED: MORPHINE SULF INJ 2 MG/ML SYRINGE 1ML IV PRN (12:15)
[2018-06-13] MEDS ORDERED: MORPHINE SULFATE 4 MG/ML SYR/VIAL IV PRN (12:15)
[2018-06-13] MEDS ORDERED: HYDROcodone-ACET 5/325MG TAB PO PRN (12:15)
[2018-06-13] MEDS ORDERED: POTASSIUM CHL 20MEQ/100ML 100 ML IV ONE (12:30)
[2018-06-13] MEDS: InsuLIN REG 1unit/0.01ml Soln (100units/ml) SC SCH ×4 (12:30→23:23)
[2018-06-13] MEDS ORDERED: DEXTROSE (50%) 50ML SYRG IV PRN (13:30)
[2018-06-13] MEDS ORDERED: INSULIN LANTUS (GLARGINE) 1 /0.01ml (100units/ml) SC ONE (13:30)
--- NOTE | 2018-06-13 14:15 | NUR ---
BIPAP: PATIENT NO LONGER SHORT OF BREATH, RESP RATE OF 19, PATIENT IS MORE ALERT THAN PRIOR, AWARE OF SURROUNDINGS, AT BEDSIDE AND ABLE TO FOLLOW SIMPLE COMMANDS. RT REMOVED BIPAP AND PATIENT PLACED ONTO A NC AT 6L/MIN.
--- NOTE | 2018-06-13 14:15 | NUR ---
Respiratory note: PT TAKEN OFF BIPAP AND PLACED ON 6 L NC WITH BUBBLE HUMIDIFIER. SPO2 92%. PT TOLERATING CHANGE WELL. RN INFORMED OF CHANGE.
--- NOTE | 2018-06-13 15:30 | NUR ---
UPDATE: PATIENT REMAINS STABLE AT TIME WITH NO SIGNS OF RESP. DISTRESS NOTED. REMAINING ON 6L NC.
--- NOTE | 2018-06-13 16:00 | NUR ---
BEDPAN: PT STATING THAT SHE HAS TO HAVE A BM. PLACED PT ONTO A BEDPAN BUT PT NOT ABLE TO HAVE A BM. [facility]-CARE AND LINEN CHANGE DONE ANYWAYS.
--- NOTE | 2018-06-13 16:30 | NUR ---
PICC LINE: PICC LINE STARTING TO OOZE AROUND INSERTION SITE. REMOVED OLD DRESSING AND APPLIED NEW DRESSING TO PICC LINE USING STERILE TECHNIQUE. APPLIED PRESSURE DRESSING AROUND PICC LINE TO HELP WITH OOZE. WILL CONTINUE TO MONITOR.
--- NOTE | 2018-06-13 17:27 | NUR ---
SWALLOW EVALUATED WITH FAMILY PRESENT. PATIENT HAS NO TEETH. ABLE TO FOLLOW 1 STEP DIRECTIONS BUT A LITTLE CONFUSION. PATIENT TOLERATED PUREE TRIAL WITH THIN LIQUIDS WITH NO OVERT SIGNS OR SYMPTOMS OF ASPIRATION. NURSING NOTIFIED.
--- NOTE | 2018-06-13 17:27 | NUR ---
SWALLOW EVAL: SWALLOW EVALUATION DONE AT BEDSIDE. PT DID PASS AND ORDERS PLACED FOR DIET.
--- NOTE | 2018-06-13 17:30 | NUR ---
PICC LINE: PICC LINE STILL HAS MINIMAL OOZE. PRESSURE DRESSING STILL IN PLACE.
[2018-06-13] MEDS: AMIODARONE HCL 900 MG in DEXTROSE 500 ML IV SCH (18:29)
--- NOTE | 2018-06-13 18:37 | NUR ---
Respiratory note: PT PLACED ON BIPAP DUE TO SPO2 < 92%. PT BIPAP(B3) ALARMS VERIFIED AND AUDIBLE, BIPAP PLUGGED INTO RED OUTLET, AMBU BAG BED SIDE. PT IS WEARING SIZE(M) FACE MASK WITH NO VISIBLE SKIN BREAKDOWN NOTED CURAPLEX IN PLACE. PT SKIN IS WARM AND DRY TO THE TOUCH WITH BRUISING NOTED ALONG LEFT UPPER EXTREMITY(ARM). PT HAS SMALL BRUISE NOTED ON RIGHT SIDE OF FACE(CHEEK). PT BS ARE DIMINISHED BILATERALLY. PT RECEIVED MED [employer] [place] AT 1837 PT TOLERATED TX WELL. PT REMAINS STABLE AT THIS TIME WILL CONTINUE TO MONITOR PT ORDERED.
--- NOTE | 2018-06-13 18:45 | NUR ---
BIPAP: PT STARTING TO DECREASE 02 SATS TO 84-87%, INCREASED WORK OF BREATHING, INCREASED RESPIRATORY RATE OF 26-30 AND SHORT OF BREATH. RT NOTIFIED AND PT PLACED BACK ONTO BIPAP.
--- NOTE | 2018-06-13 18:53 | NUR ---
MD VISIT: DR. CARVAJAL IN AT BEDSIDE. UPDATED ON PT STATUS AND NEW ORDERS RECEIVED. OK TO START PT ON AMIODARONE PO 400MG PO BID TOMORROW 06/14/2018 AT 1000 AND THEN TO DC GTT 2HRS AFTER STARTING PO. ORDERS PLACED.
--- NOTE | 2018-06-13 19:30 | NUR ---
REPORT: REPORT GIVEN TO BRICK POINTER RN TO RESUME CARE OF PT.
--- NOTE | 2018-06-13 23:41 | NUR ---
global logistics manager hospitalist paged. Patient Heart rate 110s-130s Afib. patient remains on amio drip.
[2018-06-14] VITALS (24 sets, daily range): BP systolic 120–164; BP diastolic 44–78
--- NOTE | 2018-06-14 00:18 | NUR ---
Respiratory note: PT TAKEN OFF BIPAP AT 0018 TO LET PT REST. PT PLACED ON 5LPM NC PT TOLERATING NC WELL. PT REMAINS STABLE AT THIS TIME WILL CONTINUE TO MONITOR PT ORDERED.
[2018-06-14] MEDS: LEVALBUTEROL HCL 1.25 MG/3 ML NEB NEB SCH ×6 (02:06→22:12)
[2018-06-14] MEDS: IPRATROPIUM BROM 0.5 MG/2.5ML INH SOL NEB SCH ×6 (02:06→22:12)
--- NOTE | 2018-06-14 02:06 | NUR ---
Respiratory note: AT APPROX 0206 PT PLACED BACK ON BIPAP SPO2 < 92%. ROUTINE BIPAP CHECK. BIPAP(B3) ALARMS VERIFIED AND AUDIBLE, BIPAP PLUGGED INTO RED OUTLET, AMBUBAG BEDSIDE. PT WEARING SIZE (M) FACE MASK WITH NO SKIN BREAKDOWN NOTED ON BRIDGE OF NOSE CURAPLEX IN PLACE. MODERATE SKIN BREAKDOWN NOTED ON PT'S RIGHT CHEEK. NO BIPAP CHANGES MADE AT THIS TIME. PT BS DIMINISHED BILATERALLY.PT REMAINS STABLE AT THIS TIME WILL CONTINUE TO MONITOR PT ORDERED.
[2018-06-14 03:50] LABS: Basophils # (auto) 0 uL; Basophils % (auto) 0.1 % (0.0-2.0); Eosinophils # (auto) 0 uL; Hematocrit 30.7 % (36.0-46.0); Hemoglobin 10.1 g/dL (12.2-16.2); Lymphocytes # (auto) 0.5 uL; Lymphocytes % (auto) 5.1 % (10.0-50.0); Mean Corpuscular Hemoglobin 30.3 pg (28.0-32.0); Mean Corpuscular Hgb Conc. 33.1 g/dL (32.0-36.0); Mean Corpuscular Volume 91.7 fL (80.0-100.0); Monocytes # (auto) 0.4 uL; Neutrophils # (auto) 9.3 uL; Neutrophils % (auto) 90.8 % (37.0-80.0); Platelet Count (auto) 158 10^3/uL (140-450); Red Blood Cells 3.34 10^6/uL (4.0-5.20); Red Cell Distribution Width 15.3 % (11.8-14.3); White Blood Cell 10.2 10^3/uL (4.4-10.8)
[2018-06-14 04:15] LABS: Potassium 3.4 mmol/L (3.5-5.1)
[2018-06-14 04:18] LABS: BUN/Creatinine Ratio 25.9; Calcium 9.7 mg/dL (8.5-10.1)
[2018-06-14] MEDS: FUROSEMIDE 20 MG/2 ML VIAL IV SCH (04:45)
[2018-06-14] MEDS: ACCU-CHEK COMFORT CURVE STRIP VI SCH ×4 (04:55→23:48)
[2018-06-14] MEDS: InsuLIN REG 1unit/0.01ml Soln (100units/ml) SC SCH ×4 (04:59→23:48)
[2018-06-14] MEDS: INSULIN LANTUS (GLARGINE) 1 /0.01ml (100units/ml) SC SCH (05:58)
[2018-06-14] MEDS ORDERED: POTASSIUM CHL 20 Meq TABLET PO ONE (06:30)
--- NOTE | 2018-06-14 06:50 | NUR ---
Respiratory note: RECEIVED PATIENT ON B3 BIPAP FITTED WITH A MEDIUM FACE MASK AND BEING VENTILATED WITH THE CHARTED SETTINGS. SPO2 93%, LUNG SOUNDS DIM T/O. MASK REMOVED AND SKIN ASSESSED. NO SKIN INTEGRITY ISSUES NOTED AT THIS TIME. THERE IS NO REDNESS OR BREAKDOWN ON BRIDGE OF NOSE OR CHEEKS, AND PATIENT DOES NOT COMPLAIN OF ANY TENDERNESS OR SORENESS ASSOCIATED WITH MASK. PATIENT IS AWAKE, ALERT AND ORIENTED AND TOLERATING BIPAP WELL, NO CHANGES MADE AT THIS TIME. WILL CONTINUE TO ASSESS PATIENTS READINESS TO COME OFF BIPAP. BIPAP PLUGGED INTO RED OUTLET AND ALL ALARMS ARE SET AND AUDIBLE. MED-[employer] RUN INLINE.
--- NOTE | 2018-06-14 06:57 | NUR ---
Respiratory note: REDNESS/BRUISING NOTED ON PATIENTS RIGHT CHEEKBONE, BUT IS UNASSOCIATED WITH BIPAP MASK.
--- NOTE | 2018-06-14 07:01 | NUR ---
REPORT: REPORT RECEIVED FROM JAVA FLEX DEVELOPER RN TO RESUME CARE OF PT.
--- NOTE | 2018-06-14 07:57 | NUR ---
Respiratory note: PATIENT TAKEN OFF BIPAP AT THIS TIME AND PLACED ON 5LPM OXYMIZER. SPO2 MAINTAINED AT 91%. RN JOHNIE AT BEDSIDE AND AWARE OF REMOVAL OF BIPAP AND PLACEMENT OF OXYMIZER. WILL CONTINUE TO MONITOR PATIENT.
--- NOTE | 2018-06-14 08:00 | NUR ---
OPEN: ASSESSMENT COMPLETE. SEE NURSING FLOW SHEET FOR UPDATED DETAILS. PT IS ALERT TO SELF AND OCCASIONALLY ALERT TO TIME OF YEAR, BUT CONFUSED ON PLACE AND SITUATION AT TIME. PATIENT DOES FOLLOW SIMPLE COMMANDS BUT OCCASIONALLY WILL ATTEMPT TO GET OUT OF BED AND SAYING THAT "I NEED TO FEED MY KITTENS." REORIENTED PATIENT ON PLACE AND SITUATION, BED IN LOW POSITION, SIDE RAILS UP AND BED ALARM ON FOR SAFETY. PATIENT WAS PREVIOUSLY PLACED ONTO AN OXYMIZER AT 5L/MIN AND TOLERATED WELL AT TIME. NO STRIDOR NOTED, CLEAR/DIMINISHED BREATH SOUNDS NOTED. VILLEGAS CATHETER IN PLACE DRAINING URINE TO GRAVITY. SCD'S ON BILATERAL LOWER EXTREMITIES. 3LUMEN PICC LINE TO LEFT UPPER ARM RUNNING AMIODARONE GTT AT 0.5MG/MIN AND .9NS AT TKO. ALL MONITORS HOOKED UP TO PT FOR CONTINUOUS MONITORING. SHARED POC WITH PT AND ABLE TO VERBALIZE PARTIAL UNDERSTANDING. CONTINUE CARE FOR SHIFT.
--- NOTE | 2018-06-14 08:25 | NUR ---
UPDATE: PT REMAINS ON OXYMIZER AT 5L/MIN AFTER RT PLACED EARLIER AND PT APPEARS TO BE TOLERATING AT TIME.
--- NOTE | 2018-06-14 09:00 | NUR ---
NUTRITION: PT GIVEN BREAKFAST THIS AM WITH PUREE DIET PER MD ORDERS. PT ABLE TO SIT UP, EAT WITHOUT ANY DIFFICULTY, NO COUGHING OR SIGNS OF ASPIRATION AND TOLERATED WELL. ATE 25%.
--- NOTE | 2018-06-14 09:24 | NUR ---
FAMILY: FAMILY IN AT BEDSIDE. UPDATED ON PT STATUS AND ALL QUESTIONS ADDRESSED. VERBALIZED UNDERSTANDING.
[2018-06-14] MEDS: cefTRIAXone 1GM/50ML D5W 50 ML IV SCH (09:25)
--- NOTE | 2018-06-14 10:06 | NUR ---
FAMILY: FAMILY LEFT BEDSIDE. WILL BE IN LATER TODAY.
[2018-06-14] MEDS: AMIODARONE HCL 200 MG TAB PO SCH ×2 (10:37→22:21)
[2018-06-14] MEDS: APIXABAN 5 MG TAB PO SCH ×2 (10:37→22:21)
[2018-06-14] MEDS: PANTOPRAZOLE 40 MG/10 ML VIAL IV SCH (10:37)
[2018-06-14] MEDS: METOPROLOL TARTRATE 50 MG TAB PO SCH ×2 (10:38→22:20)
[2018-06-14] MEDS: methylPREDNISolone SOD SUCC 125 MG/2 ML VL IV SCH ×2 (10:38→22:20)
[2018-06-14] MEDS: SODIUM CHLOR 0.9% PF (SALINE LOCK) 10ML VIAL/SYR IV SCH ×2 (10:38→22:19)
--- NOTE | 2018-06-14 11:00 | NUR ---
FAMILY: FAMILY IN AT BEDSIDE AGAIN. UPDATED ON PT STATUS. WHILE FAMILY IS AT BEDSIDE, PATIENT BECOMES MORE AWARE OF SURROUNDINGS, REMINISCING ABOUT PAST TIMES AND APPEARING MORE ALERT THAN WHEN FAMILY IS NOT PRESENT. HOWEVER, WHILE FAMILY IS AT BEDSIDE, PATIENT DOES LIKE TO TALK A LOT, VOICE BECOMES MORE HOARSE, MILD STRIDOR NOTED ON AUSCULTATION AROUND THROAT AND PT O2 SATS DECREASE TO 89%. INCREASED OW TO 6L/MIN. INSTRUCTED PATIENT TO NOT TALK TOO MUCH AND REST. AFTER INSTRUCTION, PATIENT HAS RESTED MORE, INCREASED O2 SATS TO 93% AND FAMILY HAS DECIDED TO LEAVE BEDSIDE FOR PATIENT TO REST.
--- NOTE | 2018-06-14 11:04 | NUR ---
I spoke with Dr. Lock regarding the plan of care for this patient-she said patient can be downgraded today but is not yet ready for discharge.
--- NOTE | 2018-06-14 11:32 | NUR ---
MD VISIT: DR. CHAUDHRY IN AT BEDSIDE. UPDATED ON PT STATUS AND AWARE OF CURRENT FINDINGS. SPOKE TO FAMILY IN DETAIL AT BEDSIDE AND AWARE THAT PATIENT MAY BE DOWNGRADED TO NANCY STATUS. FAMILY AWARE OF UPDATED STATUS AND ALL QUESTIONS AND CONCERNS ADDRESSED.
--- NOTE | 2018-06-14 14:40 | NUR ---
MD VISIT: DR. TORREZ IN AT BEDSIDE. UPDATED ON PT STATUS AND AWARE OF CURRENT FINDINGS. NO NEW ORDERS RECEIVED. CONTINUE CARE.
--- NOTE | 2018-06-14 15:00 | NUR ---
PICC LINE: CHANGED PICC LINE DRESSING TO LEFT UPPER ARM USING STERILE TECHNIQUE. PT DID HAVE DRIED BLOOD UNDER DRESSING. PT TOLERATED WELL.
--- NOTE | 2018-06-14 15:45 | NUR ---
DRESSING CHANGE: REMOVED FOAM DRESSING TO RIGHT FOREARM AND APPLIED NEW DRESSING. NOTED THAT SITE WAS MIDLY OOZING BLOOD. WILL CONTINUE TO MONITOR.
--- NOTE | 2018-06-14 16:00 | NUR ---
DRESSING: NOTED THAT DRESSING TO RIGHT FOREARM THAT WAS CHANGED STILL HAS BLOOD AND OOZING. REMOVED DRESSING AND APPLIED 4X4 WITH KERLEX WRAP. WILL CONTINUE TO MONITOR.
--- NOTE | 2018-06-14 17:45 | NUR ---
ROOM ASSIGNMENT: RECEIVED BED ASSIGNMENT FOR PATIENT TO BE MOVING TO ROOM 266.
--- NOTE | 2018-06-14 18:19 | NUR ---
WOUND TO RIGHT FOREARM: NOTED THAT FOREARM WOUND TO RIGHT FOREARM NO LONGER OOZING.
[2018-06-14] MEDS: FUROSEMIDE 40 MG/4 ML VIAL IV SCH (18:26)
--- NOTE | 2018-06-14 18:40 | NUR ---
REPORT: REPORT CALLED AND GIVEN. PT WILL BE TRANSFERRING TO ROOM 266.
--- NOTE | 2018-06-14 18:55 | NUR ---
ROOM MOVEMENT: PATIENT MOVED TO ROOM 266 AFTER TRANSFERRING TO NEW BED, REPORT GIVEN PREVIOUSLY, PATIENT CONNECTED TO PORTABLE O2 FOR TRANSFER, ALL BELONGINGS TAKEN WITH PT AND PT REMAINED ON WATER SPONGER. PT LEFT IN STABLE CONDITION. TRANSFERRED TO ROOM 266 AND CONNECTED TO THE BEDSIDE MONITOR, VITAL SIGNS TAKEN AND IN STABLE CONDITION.
--- NOTE | 2018-06-14 19:55 | NUR ---
Opening Shift Note Assumed care of patient, awake and alert and oriented x2, attempting to get OOB . Patient stating she needs to go to her room, reoriented to location. No S/S of distress/SOB. Patient denies pain at this time. Bed alarm on. Instructed on POC and to call for assist PRN, will continue to monitor for changes frequently.
--- NOTE | 2018-06-14 21:30 | NUR ---
DRESSING TO RIGHT FA NOTED TO BE WEEPING WITH MODERATE AMOUNT OF SANGUINEOUS DRAINAGE. WOUND CARE DONE. SKIN TEAR CLEANSED WITH NS PATTED DRY AND OPTIFOAM AND KERLIX IN PLACE. CONTINUE TO MONITOR
[2018-06-14] MEDS: POTASSIUM CHL 20 Meq TABLET PO SCH (22:20)
[2018-06-15] VITALS: BP 149/65
--- NOTE | 2018-06-15 02:13 | NUR ---
DRESSING: Dressing to right forearm saturated w/ sanguinous fluid. Kerlex and Optifoam removed. Area cleaned w/ wound cleanser. Surgicel applied to area to stop bleeding as dressing had been changed earlier in shift. 4X4 gauze applied and kerlex wrap applied to hold dressing in place. To reassess dressing in 1 hour. Pt tolerated procedure well.
[2018-06-15] MEDS: IPRATROPIUM BROM 0.5 MG/2.5ML INH SOL NEB SCH ×6 (02:17→22:17)
[2018-06-15] MEDS: LEVALBUTEROL HCL 1.25 MG/3 ML NEB NEB SCH ×6 (02:17→22:18)
[2018-06-15] MEDS: FUROSEMIDE 40 MG/4 ML VIAL IV SCH ×2 (05:54→18:00)
[2018-06-15] MEDS: ACCU-CHEK COMFORT CURVE STRIP VI SCH ×3 (05:54→18:27)
--- NOTE | 2018-06-15 06:00 | NUR ---
AM CARE PARTIAL BED BATH GIVEN AND PARTIAL LINEN CHANGE DONE. NEW GOWN PLACED ON PATIENT, REPOSITIONED FOR COMFORT. CONTINUE CARE.
[2018-06-15 06:12] LABS: Basophils # (auto) 0 uL; Basophils % (auto) 0.1 % (0.0-2.0); Eosinophils # (auto) 0 uL; Hematocrit 31.7 % (36.0-46.0); Hemoglobin 10.1 g/dL (12.2-16.2); Lymphocytes # (auto) 0.4 uL; Lymphocytes % (auto) 3.1 % (10.0-50.0); Mean Corpuscular Hemoglobin 29.5 pg (28.0-32.0); Mean Corpuscular Volume 92.2 fL (80.0-100.0); Monocytes # (auto) 0.7 uL; Monocytes % (auto) 4.9 % (0.0-12.0); Neutrophils # (auto) 13.2 uL; Neutrophils % (auto) 91.9 % (37.0-80.0); Platelet Count (auto) 203 10^3/uL (140-450); Red Blood Cells 3.44 10^6/uL (4.0-5.20); Red Cell Distribution Width 15.4 % (11.8-14.3); White Blood Cell 14.4 10^3/uL (4.4-10.8)
[2018-06-15] MEDS: INSULIN LANTUS (GLARGINE) 1 /0.01ml (100units/ml) SC SCH (06:19)
[2018-06-15] MEDS: InsuLIN REG 1unit/0.01ml Soln (100units/ml) SC SCH ×3 (06:19→18:28)
[2018-06-15 06:30] LABS: BUN/Creatinine Ratio 34.9; Calcium 9.8 mg/dL (8.5-10.1); Potassium 3.6 mmol/L (3.5-5.1)
--- NOTE | 2018-06-15 07:34 | NUR ---
CARE ENDORSED TO DAY SHIFT RN PATIENT AWAKE IN BED WATCHING TELEVISION NO COMPLAINTS OF PAIN NO DISTRESS OR SOB NOTED POX 94, HEART RATE 104 AT THIS TIME PATIENT WITH CALL LIGHT IN HAND
--- NOTE | 2018-06-15 07:42 | NUR ---
RT NOTE: O2 DECREASED TO 6L OXYMIZER. RN BEDSIDE. WILL CONTINUE TO MONITOR.
[2018-06-15 08:00] VITALS: BP 131/75
--- NOTE | 2018-06-15 08:00 | NUR ---
sbar report received from noc shift. am assessment performed at this time with 0 complications noted. see flowsheet for more details. vss.
[2018-06-15] MEDS: cefTRIAXone 1GM/50ML D5W 50 ML IV SCH (09:00)
--- NOTE | 2018-06-15 09:00 | NUR ---
pt's orb at bedside. updated family with poc and pt overall status. no further questions at this time. verbalized understanding to poc. vss.
[2018-06-15] MEDS: methylPREDNISolone SOD SUCC 125 MG/2 ML VL IV SCH (09:43)
[2018-06-15] MEDS: POTASSIUM CHL 20 Meq TABLET PO SCH ×2 (09:43→21:17)
[2018-06-15] MEDS: SODIUM CHLOR 0.9% PF (SALINE LOCK) 10ML VIAL/SYR IV SCH ×2 (09:43→21:12)
[2018-06-15] MEDS: APIXABAN 5 MG TAB PO SCH ×2 (09:43→21:17)
[2018-06-15] MEDS: AMIODARONE HCL 200 MG TAB PO SCH ×2 (09:43→21:16)
[2018-06-15] MEDS: PANTOPRAZOLE 40 MG TAB PO SCH (09:44)
[2018-06-15] MEDS: METOPROLOL TARTRATE 50 MG TAB PO SCH ×2 (09:44→21:18)
--- NOTE | 2018-06-15 11:15 | NUR ---
md corado at bedside. updated md with pt overall status including episode of converting to afib. new orders given and implemented, vss. spoke with pt and family on poc. no further questions from either at this time.
[2018-06-15 12:00] VITALS: BP 128/66
--- NOTE | 2018-06-15 12:00 | NUR ---
WOUND CARE NOTE: IN TO SEE PATIENT AT THIS TIME FOR WOUND REEVALUATION. PATIENT IS AWAKE, ALERT, ORIENTED X 3, IN NO STATED PAIN. SHE HAS CURRENT FIONA SCORE OF 15. PATIENT CAN SELF TURN/REPOSITION SELF. SHE IS WORKING WITH PHYSICAL THERAPY TO GET UP IN CHAIR. PATIENT CONTINUES TO HAVE A WELL HEALING SKIN TEAR TO THE RIGHT FOREARM. WOUND MEASURES 3 X 4.2 CM. WOUND IS NOTED TO HAVE SCANT SEROUS DRAINAGE. WOUND BED IS RED, PERIWOUND IS PURPLE, DARK RED, AND PINK. NEW WOUND PHOTO TAKEN AT THIS TIME. APPLIED THERAHONEY AND OPTIFOAM GENTLE DRESSING. PATIENT TOLERATED DRESSING CHANGE WELL, NOTING NO PAIN BY PATIENT. RECOMMEND: CHANGE DRESSING Q 3 DAYS/PRN FROM EOD, CONTINUATION WITH ALL OTHER WOUND CARE ORDERS PREVIOUSLY PRESCRIBED BY MD. WOUND CARE TEAM WILL CONTINUE TO MONITOR. Addendum: 06/15/18 at 1531 by Comfort De La Fuente RN Amended: Links added.
--- NOTE | 2018-06-15 12:30 | NUR ---
wound rn at bedside completing assessment. pt tolerated activity well with 0 complications noted, vss.
[2018-06-15] MEDS ORDERED: MIDAZOLAM DRIP 50 mg/50mL 50 ML IV SCH (13:11)
[2018-06-15] MEDS ORDERED: fentaNYL Drip 2500mCg/250mlNS 250 ML IV SCH (13:11)
--- NOTE | 2018-06-15 13:49 | NUR ---
Nutrition Follow-up Notes Wt.: 72.0 kg today. Pt's successfully extubated (), on oxymizer, watching TV, denies any discomfort when rounded earlier. 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 Pt's diabetic, takes oral DM meds, usually has good appetite, eat meals regularly, NKFA and tries to eat healthy diet uniform force captain. Pt's off from EN support, had swallow eval by ST (06/13/18), currently on Consistent Carb diet with inadequate PO intake aeb 25% ave. consumed meals (x5) in last 2 days. Encouraged to increase food intake through small frequent meals as tolerated. Provide verbal and written nutrition educ. re: current prescribed therapeutic diet and she verbalized understanding. Est. Needs ABW [id number] kcal (23-25 kcal/kgBW), 50-63 gms pro (0.8-1.0 gms/kgBW r/t elev RFT). Will continue to monitor pertinent labs and reassess nutrient need prn Labs: Gluc 196 H, BUN 38 H, Cr 1.09 H, Tpro 6.0 L, Alb 2.2 L. Skin: Luan scale 15, mod risk, skin tear on Rt arm per assistant infant teacher. Pls refer to truck shop supervisor's notes 06/14/18 for further details re: tx plans. GI: Pt had 1 BM 06/12/18 per assistant infant teacher. PES: Altered nutrition related lab values r/t current/chronic medical condition aeb elev RFT Decreased nutrient needs r/t adiposity aeb pt`s high BMI of 30.8 kgm2 Resolved: Impaired swallowing r/t current medical condition aeb pt`s intubated sedated with order of NPO Will continue to monitor PO intake, skin status, pertinent labs and weight trend. F/u in 3 to 5 days. Rec.: 1.) Continue close supervision and feeding assistance prn with meals. 2.) If Albumin level continues trending down, consider Prostat 1 pkt BID. 3.) Consider daily MVI with minerals and Asc acid 500 mgs BID. 4.) If pt's PO intake remains inadequate (<75%), consider Glucerna Shakes 1 carton BID. 5.) Refer to CDE/RD for further nutrition education and weight monitoring upon discharged. 6.) Continue current plan of care.
--- NOTE | 2018-06-15 14:32 | NUR ---
Respiratory note: REDNESS NOTED ON PT'S RIGHT CHEEK. RN NOTIFY. OXYMIZER WAS PLACED CAREFULLY BACK ON PT'S FACE.
[2018-06-15 16:00] VITALS: BP 126/56
--- NOTE | 2018-06-15 18:30 | NUR ---
Respiratory note: SKIN BREAKDOWN NOTED ON PT RIGHT CHEEK, RN AWARE. PT REMAINS ON 4L OXYMIZER.
[2018-06-15] MEDS: methylPREDNISolone SOD SUCC 40 MG/ML VL IV SCH (21:16)
[2018-06-16] VITALS (7 sets, daily range): BP systolic 131–148; BP diastolic 55–96
--- NOTE | 2018-06-16 00:58 | NUR ---
Respiratory note: PT ON OXIMIZER 4LPM IN NO DISTRESS. BIPAP AT BEDSIDE, PT NOT WEARING AT THIS TIME AND DOESN'T WANT TO GO ON. WILL CONTINUE TO MONITOR T/O NIGHT.
[2018-06-16] MEDS: ACCU-CHEK COMFORT CURVE STRIP VI SCH ×3 (01:07→12:07)
[2018-06-16] MEDS: InsuLIN REG 1unit/0.01ml Soln (100units/ml) SC SCH ×3 (01:08→12:08)
--- NOTE | 2018-06-16 01:28 | NUR ---
Pt resting comfortably at this time. Pt requested bedtime meds early so she could go to sleep and not be disturbed. No S/S of distress. Slept through midnight VS and insulin admin. Will continue to monitor.
[2018-06-16] MEDS: IPRATROPIUM BROM 0.5 MG/2.5ML INH SOL NEB SCH ×4 (02:20→15:05)
[2018-06-16] MEDS: LEVALBUTEROL HCL 1.25 MG/3 ML NEB NEB SCH ×4 (02:21→15:05)
[2018-06-16 06:55] LABS: Basophils # (auto) 0 uL; Eosinophils # (auto) 0 uL; Hematocrit 29.3 % (36.0-46.0); Hemoglobin 9.7 g/dL (12.2-16.2); Lymphocytes # (auto) 0.4 uL; Lymphocytes % (auto) 3.5 % (10.0-50.0); Mean Corpuscular Hemoglobin 30.3 pg (28.0-32.0); Mean Corpuscular Volume 91.8 fL (80.0-100.0); Monocytes # (auto) 0.6 uL; Monocytes % (auto) 5.1 % (0.0-12.0); Neutrophils # (auto) 10.8 uL; Neutrophils % (auto) 91.4 % (37.0-80.0); Platelet Count (auto) 183 10^3/uL (140-450); Red Blood Cells 3.19 10^6/uL (4.0-5.20); Red Cell Distribution Width 15.4 % (11.8-14.3); White Blood Cell 11.8 10^3/uL (4.4-10.8)
[2018-06-16] MEDS: INSULIN LANTUS (GLARGINE) 1 /0.01ml (100units/ml) SC SCH (07:00)
[2018-06-16 07:14] LABS: BUN/Creatinine Ratio 39.6; Calcium 9.3 mg/dL (8.5-10.1); Potassium 3.7 mmol/L (3.5-5.1)
--- NOTE | 2018-06-16 07:30 | NUR ---
RECEIVED PATIENT SITTING UP IN THE BED, A/O TIMES3 -4 WHEN NAME IS CALLED, O2 AT 3L BY THE OXYMIZER, VILLEGAS TO GRAVITY, SHARAD PICC LINE WITH 3 LUMENS, SCD'S TO JOSSUE LEGS, DRESSING TO THE RT GROIN DRY AND INTACT, STATES SHE IS GOING HOME TODAY
[2018-06-16] MEDS: FUROSEMIDE 40 MG/4 ML VIAL IV SCH (08:03)
--- NOTE | 2018-06-16 08:35 | NUR ---
IN TO SEE THE AND HELP WITH BREAKFAST
--- NOTE | 2018-06-16 09:15 | NUR ---
JESUS FROM [facility] IN TO SEE THE PATIENT AND DISCUSSED WITH THEM ABOUT HOSPICE AND THEY ACCEPTED THE PATIENT AND THE SIGNED THE PAPERS
[2018-06-16] MEDS: SODIUM CHLOR 0.9% PF (SALINE LOCK) 10ML VIAL/SYR IV SCH (10:03)
[2018-06-16] MEDS: methylPREDNISolone SOD SUCC 40 MG/ML VL IV SCH (10:03)
[2018-06-16] MEDS: cefTRIAXone 1GM/50ML D5W 50 ML IV SCH (10:03)
[2018-06-16] MEDS: POTASSIUM CHL 20 Meq TABLET PO SCH (10:04)
[2018-06-16] MEDS: APIXABAN 5 MG TAB PO SCH (10:04)
[2018-06-16] MEDS: PANTOPRAZOLE 40 MG TAB PO SCH (10:04)
[2018-06-16] MEDS: AMIODARONE HCL 200 MG TAB PO SCH (10:05)
[2018-06-16] MEDS: METOPROLOL TARTRATE 50 MG TAB PO SCH (10:05)
--- NOTE | 2018-06-16 10:05 | NUR ---
DISCUSSED MEDICATIONS WITH THE PATIENT REGARDING THE DOSAGE,USAGE, AND THE SIDE EFFECTS, VERBALIZED THEY UNDERSTOOD AND MEDS GIVEN ORDERED
[2018-06-16] MEDS ORDERED: ENAL5TAB PO (10:52)
[2018-06-16] MEDS ORDERED: AMI200T PO (10:52)
[2018-06-16] MEDS ORDERED: POTA20TA53 PO (10:52)
[2018-06-16] MEDS ORDERED: APIX5TAB PO (10:52)
[2018-06-16] MEDS ORDERED: MET50T PO (10:52)
--- NOTE | 2018-06-16 11:30 | NUR ---
SITTING UP IN THE BED TALKING ON THE PHONE
--- NOTE | 2018-06-16 12:30 | NUR ---
SAT UP IN BED AND ATE HER LUNCH BUT ONLY EATS A LITTLE AT AT TIME, STATES SHE DOESN'T EXERCISE ENOUGH TO BURN OFF THE FOOD SO THAT IS WHY SHE DOESN'T EAT VERY MUCH
--- NOTE | 2018-06-16 13:00 | NUR ---
RECEIVED CALL FROM JESUS AND STATED TO LEAVE THE VILLEGAS IN THEY WOULD TAKE IT OUT IN A FEW DAYS
--- NOTE | 2018-06-16 13:30 | NUR ---
ALBIN ALVARENGA TO VISIT WITH THE PATIENT
--- NOTE | 2018-06-16 14:11 | NUR ---
NOTIFIED BY JESUS FROM [facility] THAT PATIENT WILL BE PICKED UP AT 1700 BY [facility] FOR TRANSPORT HOME
--- NOTE | 2018-06-16 14:12 | NUR ---
EXPRESS TO JESUS THAT DR CHAUDHRY CALLED THE MEDICATIONS TO [facility], STATED SHE WILL NOTIFY THE NURSE TO DRY CANS BACK TENDER OR THE
--- NOTE | 2018-06-16 14:24 | NUR ---
PT IN TO SEE THE PATIENT AND ASK IF THEY COULD WORK WITH HER TODAY AND SHE STATED NO SHE IS GOING HOME TODAY
--- NOTE | 2018-06-16 15:00 | NUR ---
HOUSE KEEPER IN TO SEE THE PATIENT AND WENT TO THE PHARMACY AND GOT THE MEDS
--- NOTE | 2018-06-16 15:05 | NUR ---
Respiratory note:MED NEB REFUSAL AT THIS TIME: PATIENT STATES SHE IS BEING DISCHARGE SOON, SHE STATES NO SOB AND SHE IS IN NO RESP DISTRESS AT THIS TIME. INFORMED RN CARLOS OF REFUSAL TX.
--- NOTE | 2018-06-16 16:00 | NUR ---
SITTING UP IN BED WAITING TO GO HOME
--- NOTE | 2018-06-16 16:30 | NUR ---
DISCHARGE INSTRUCTIONS GIVEN TO THE PATIENT AND VERBALIZED THAT SHE UNDERSTOOD
--- NOTE | 2018-06-16 16:45 | NUR ---
PICTURE TAKEN OF THE RIGHT ARM SKIN TEAR
--- NOTE | 2018-06-16 17:00 | NUR ---
[facility] HERE TO TAKE PATIENT HOME, PICC LINE REMOVED
--- NOTE | 2018-06-16 17:20 | NUR ---
PICC LINE BLEEDING AFTER REMOVAL HELD PRESSURE FOR 15 MINUTES AND DRESSING APPLIED REMINDED [employer] TO KEEP AN EYE ON THE SITE AND HOLD PRESSURE IF IT STARTED TO BLEED AGAIN, NOT BLEEDING AT THIS TIME
--- NOTE | 2018-06-16 17:30 | NUR ---
PATIENT ON GURNEY AND LEAVING NO BLEEDING FROM THE PICC LINE SITE, DRESSING DRY AND INTACT, EXPLAIN TO THE PATIENT TO TAKE IT OFF AFTER SHE GETS HOME, STATED SHE WOULD, PATIENT LEFT WITH ALL BELONGING INCLUDING MEDICATIONS THAT WERE GOTTEN FROM [facility] AND HER TEETH, AND GLASSES.
== END 2018-06-16 17:30 | disposition hospice, home (50) | DRG 870 ==
LOC: ER 06:38 → EDBD 06:38 → TELE 11:09 → ICU WEST 15:25 → DOU IN ICU 06-14 18:54
PROVIDERS: ADMIT Nurse Practitioner Acute Care; ATTEND Internal Medicine
PROC: 02HV33Z Insertion of Infusion Device into Superior Vena Cava, Percutaneous Approach (ICD-10-PCS; principal; 2018-06-07)
PROC: 5A1955Z Respiratory Ventilation, Greater than 96 Consecutive Hours (ICD-10-PCS; 2018-06-07)
PROC: 0BH17EZ Insertion of Endotracheal Airway into Trachea, Via Natural or Artificial Opening (ICD-10-PCS; 2018-06-07)
PROC: 5A09357 Assistance with Respiratory Ventilation, Less than 24 Consecutive Hours, Continuous Positive Airway Pressure (ICD-10-PCS; 2018-06-07)
PROC: 4A023N7 Measurement of Cardiac Sampling and Pressure, Left Heart, Percutaneous Approach (ICD-10-PCS; 2018-06-09)
PROC: B2111ZZ Fluoroscopy of Multiple Coronary Arteries using Low Osmolar Contrast (ICD-10-PCS; 2018-06-09)
PROC: 5A09357 Assistance with Respiratory Ventilation, Less than 24 Consecutive Hours, Continuous Positive Airway Pressure (ICD-10-PCS; 2018-06-12)
PROC: 5A09357 Assistance with Respiratory Ventilation, Less than 24 Consecutive Hours, Continuous Positive Airway Pressure (ICD-10-PCS; 2018-06-13)
PROC: 5A09357 Assistance with Respiratory Ventilation, Less than 24 Consecutive Hours, Continuous Positive Airway Pressure (ICD-10-PCS; 2018-06-14)
PROC: 5A09357 Assistance with Respiratory Ventilation, Less than 24 Consecutive Hours, Continuous Positive Airway Pressure (ICD-10-PCS; 2018-06-16)
DX: A41.9 Sepsis, unspecified organism (principal); J18.9 Pneumonia, unspecified organism; I50.43 Acute on chronic combined systolic (congestive) and diastolic (congestive) heart failure; N17.0 Acute kidney failure with tubular necrosis; J96.21 Acute and chronic respiratory failure with hypoxia; N39.0 Urinary tract infection, site not specified; I13.0 Hypertensive heart and chronic kidney disease with heart failure and stage 1 through stage 4 chronic kidney disease, or unspecified chronic kidney disease; E87.2 Acidosis; J44.0 Chronic obstructive pulmonary disease with (acute) lower respiratory infection; D68.69 Other thrombophilia; I48.91 Unspecified atrial fibrillation; D64.9 Anemia, unspecified; E11.22 Type 2 diabetes mellitus with diabetic chronic kidney disease; N18.3 Chronic kidney disease, stage 3 (moderate); I25.5 Ischemic cardiomyopathy; I25.10 Atherosclerotic heart disease of native coronary artery without angina pectoris; B96.1 Klebsiella pneumoniae [K. pneumoniae] as the cause of diseases classified elsewhere; I70.0 Atherosclerosis of aorta; I48.0 Paroxysmal atrial fibrillation; Z51.5 Encounter for palliative care; I25.2 Old myocardial infarction; Z79.899 Other long term (current) drug therapy; Z79.84 Long term (current) use of oral hypoglycemic drugs
CPT/HCPCS: 31500; 36415; 36569; 36600; 51702; 71045; 80048; 80053; 80202; 81001; 82805; 82962; 83036; 83605; 83735; 83880; 84484; 85025; 85379; 85610; 85730; 87040; 87070; 87081; 87086; 87088; 87186; 87205; 92610; 93005; 93306; 93458; 93970; 94002; 94003; 94640; 94644; 94660; 96365; 96367; 96375; 97163; 99291; A6257; C9113; G0378; J0330; J0696; J1815; J1956; J2250; J2704; J3480; Q9967